=== PATIENT | female | born 1955 | race Caucasian/White ===

== ENCOUNTER 2017-07-23 13:31 | Observation (INO) | payer MEDICAID ==
[~2017-07-23] VITALS: Ht 157.5 cm; Wt 69.9 kg
[~2017-07-23 13:31] MED LIST: AMLODIPINE BES10 MG PO; ASPIRIN 81MG TA81 MG PO; ATORVASTATIN CA40 MG PO; CIPRO 500MG TA500 MG PO; FLAGYL500 M1 PO; LISINOPRIL 20MG20 MG PO; PLAVIX75 M1 PO
[2017-07-23 13:32] VITALS: BP 167/94
[2017-07-23 13:53] LABS: HEMOGLOBIN 14.7 g/dL (12.2-16.2); LYMPH # 2.3 K/mm3 (0.7-4.5); LYMPH % 31.5 % (10-50.0)
[2017-07-23 14:22] LABS: BUN 14 mg/dL (7-18)
[2017-07-23 14:25] LABS: GFR (ESTIMATED) 85 ML/MIN (59-)
--- NOTE | 2017-07-23 14:26 | Emergency Room Report ---
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 N Clinical Suspician of Infection? N Mental Status: 1 - Regular (Normal Baseline) Sepsis Risk:Low Sepsis Risk Have you (or family members/close friends) recently traveled outside the [place]? N If Yes, where/when: Have you had exposure to infectious disease within the past month? N TB? Other? Specify: Patient was walking in her house one hour TECHNICAL SUPPORT CONSULTANT today (around 12:45 PM) when she experienced acute SSCP radiating to her back with nausea and a "hot feeling", no vomiting, no syncope, no diaphoresis, no calf pain. Pain occurs at rest now, and is unremitting. She remotes having had a stress test one year ago, but I do not see documentation in our records. She has a hx of hypertension, hyperlipidemia, FH dad CABG; she does not smoke, is not diabetic. She took low dose aspirin TECHNICAL SUPPORT CONSULTANT and was given supplemental ASA on arrival to ED. ALLERGIES Coded Allergies: enoxaparin (Severe, MOUTH SWELLING 09/11/16) Penicillins (Mild, "FEELS FUNNY" 08/07/16) ciprofloxacin (From CIPRO) (LIPS AWELL, HEART RATE RAPID 09/11/16) latex (I-RASH 09/11/16) lisinopril (RAPID HEART RATE 09/11/16) metronidazole (From FLAGYL) (LIPS SWELLING, HEART RAID RAPID 09/11/16) Home Medications Reported Medications ASPIRIN (Aspirin) 81 MG PO DAILY Amlodipine Besylate (Amlodipine Besylate) 10 MG PO DAILY #30 History Medical History General CAD? No Angina: No WV: No Hypertension? Yes Hyperlipidemia? No CHF? No DVT? No PE? No COPD? No Asthma? No Anemia? No GERD? No Gastric ulcers? No GI Bleed? No Hernia? No Thyroid Problems? No Hypothyroidism? No CVA? No Seizures? No Diabetes? No Renal Insuffiency? No End Stage Renal Disease? No UTI? No Stones? No BPH? No GB Disease: No Nephritic Syndrome? No Asplenia? No Hepatitis? No Sickle Cell Disease? No Arthritis? No Migraines? No Cataracts? No Glaucoma? No MRSA? No HIV? No TB? No Anxiety? No Depression? No Cancer? No More? Yes Additional hx: TIA Immunization Hx DT/Tetanus > 10 Years Ago Flu Refused Pneumonia Refuses Surgical Hx Previous Surgery?Y Tonsils And/Or Adenoids TUBAL LIGATION GALL BLADDER Family History Family Hx Diabetes No CAD Yes Hypertension Yes Hyperlipidemia Yes Cancer Yes TB No Social History Smoking Hx Smoker: Never Smoker Tobacco: No Alcohol Alcohol: No Review of Systems All Other Systems Reviewed and Negative Cardiovascular see HPI Physical Exam Vital Signs Vital Signs Date Time Temp Pulse Resp B/P Pulse O2 O2 Flow FiO2 Ox Delivery Rate 07/23 1502 81 14 160/70 98 07/23 1431 14 07/23 1424 85 14 130/90 98 07/23 1407 14 07/23 1332 98.1 103 16 167/94 98 General Appearance normal appearance, WD/WN, mild distress Eye Exam - bilateral eye normal exam, bilateral eye PERRL, bilateral eye EOMI Neck normal inspection, non-tender, supple, full range of motion Respiratory Status Yes: trachea midline, chest symmetrical, non tender chest. No: respiratory distress, tender on palpation, use of accessory muscles, pain on inspiration, pain on expiration, productive cough, non productive cough. Lung Sounds bilateral: normal breath sounds, lungs clear. Cardiovascular normal exam, regular rate/rhythm, no peripheral edema, no gallop, no JVD, no murmur, no rub, normal peripheral pulses Gastrointestinal normal bowel sounds, normal exam, non tender, soft, no organomegaly, no pulsatile mass, no guarding, no rebound Extremities non-tender, normal range of motion, normal inspection, normal capillary refill, no calf tenderness, no pedal edema (neg Margaret's B) Strength 5 Upper Ext (L), 5 Upper Ext (R), 5 Lower Ext (L), 5 Lower Ext (R) Neurologic alert, normal exam, no motor/sensory deficits, oriented x 3 Glascow Coma Scale Glascow Coma Scale Response Value EYE response: 4 Spontaneously 4 MOTOR response: 6 OBEYS 6 VERBAL response: 5 Oriented & Converses 5 Total 15 Skin intact, normal color, warm/dry Medical Decision Making LABS/Meds/Orders Pt receiving controlled substance in ED? No Results/Orders Laboratory Tests 07/23/17 1345: Sodium 138, Potassium 3.3 L, Chloride 102, Carbon Dioxide 28, BUN 14, Creatinine 0.7, Estimated Creat Clear 91, Estimated GFR (MDRD) 85, Glucose 168 H, Calcium 9.0, Total Bilirubin 0.8, AST 18, ALT 22, Alkaline Phosphatase 134 H , Creatine Kinase 58, CK-MB (CK-2) Rel Index 0.9, CK and CKMB Interp < 0.5, Troponin I < 0.02, Total Protein 7.8, Albumin 4.2, Globulin 3.6 H, Albumin/ Globulin Ratio 1.2, WBC 7.5, RBC 4.58, Hgb 14.7, Hct 42.4, MCV 92.6, RDW 11.8, Plt Count 166, MPV 10.9 H, Gran % 61.7, Gran # 4.6, Lymphocytes % 31.5, Monocytes % 4.8, Eosinophils % 1.0, Basophils % 1.1, Lymphocytes # 2.3, Monocytes # 0.4, Eosinophils # 0.1, Basophils # 0.1, PUBS MCHC 34.7, MCH 32.1 H Current Medication Orders Sig/Vangie Start time Last Medication Dose Route Stop Time Status Admin Ondansetron HCl 0 .STK-MED ONE 07/23 1431 DC .ROUTE Morphine Sulfate 4 MG ONCE ONE 07/23 1430 DC 07/23 IV 07/23 1431 1431 Morphine Sulfate 0 .STK-MED ONE 07/23 1430 DC .ROUTE Ondansetron HCl 4 MG ONCE ONE 07/23 1430 DC 07/23 IV 07/23 1431 1431 Nitroglycerin 0.4 MG ONCE ONE 07/23 1415 DC 07/23 SL 07/23 1416 1407 Sodium Chloride 1,000 ML .Q1H1M 07/23 1415 DC 07/23 IV 07/23 1515 1407 Sodium Chloride 10 ML PRN PRN 07/23 1415 AC IV 07/24 1406 Nitroglycerin 0 .STK-MED ONE 07/23 1351 DC SL Sodium Chloride 1,000 ML .STK-MED ONE 07/23 1351 DC IV Sodium Chloride 10 ML PRN PRN 07/23 1345 AC IV 07/24 1339 Orders Procedure Date/time Status Decision to admit 07/23 1502 Active ELECTROCARDIOGRAM REQUEST 07/23 1339 Active CHEST-AP VIEW ONLY 07/23 1339 Active IV SALINE LOCK 07/23 1339 Active CBC WITH AUTO DIFF 07/23 1339 Complete CARDIAC ENZYMES 07/23 1339 Complete CHEM 12 PROFILE 07/23 1339 Complete 12 LEAD EKG-OLENA (INITIAL) 07/23 UNK Active CM/EKG CM/EKG EKG rate, NSR, rhythm, no ectopy, normal QRS, normal CO, normal EKG (Stach w ST depression V4-V6), compared w/(date of old) (04/21: these are NEW) XRAY/CT/US XRAY/CT/US XRAY chest XR interpretation by reviewed by me Xray Results normal/NAD, no infiltrates, normal heart size Consult MD Physician Consult 1 Time Called 1426 Reason Pt. Condition, Cardiology eval/care Physician Consult 2 Time Called [address] Mccloud admitting. Progress ED Progress Notes Date 07/23/17 Time 1502 Comment stress test 02/25/16 good exercise tolerance Departure Departure Time of Disposition 1443 Disposition Still a Patient Clinical Impression Primary Impression: Chest pain Qualifiers: Chest pain type: precordial pain Qualified Code: R07.2 - Precordial pain Condition STABLE Referrals Ame DAVIS,Ba Bonilla (Family) ED Critical Care Critical Care Yes Time spent < 30 min Vital system(s) involved: Circulatory Failure (unstable angina) I was present at bedside for Coordinating pt's care, Interpreting EKGs/Strips , During my initial exam, Reviewing lab results, Reviewing old records, Discussing pt condition, For re-examinations, Examining radiographs (consult; d/ w pt) at 4498
--- NOTE | 2017-07-23 15:23 | CONSULT NOTE ---
Standard Demographics Patient Demo Date of Consultation: 07/23/17 Referring Provider: Rebecca Mccloud MD Reason for Consultation: Unstable angina PRIMARY DIAGNOSIS: chest pain Problem list Problem list: 1. HTN 2. Hyperlipidemia 3. History of TIA, 2016, workup at without etiology 4. GXT only, 02/2016, 8 min, 10.1 METS, no chest pain or SOA. Mild ST segment changes. 5. FH of ASHD in father with CABG in his 60's History of present illness: History of present illness: 62 yo WF with history of HTN, Hyperlipidemia and TIA in 2016 came to ER today for evaluation of sudden onset of right sided and SS chest pain that included chest pressure, mild SOA and diaphoresis sensation for about one hour prior to arrival. Pt was given 1 SL NTG in ER with improvement in symptoms but not resolved. EKG is sinus tach at 100 bpm with NSSTTW abnormalities laterally when compared to previous EKG's. Initial troponin is normal. Cardiology consulted for evaluation. Pt denies diabetes or tobacco use. Past Medical History: General: Hypertension Yes CVA No Seizures No TB No COPD No Asthma No Diabetes No Angina No NC No Hyperlipidemia No Cancer No MRSA No GB Disease No Additional hx TIA Past Surgical HX: Previous Surgery?Y Tonsils And/Or Adenoids TUBAL LIGATION GALL BLADDER Allergies Coded Allergies: enoxaparin (Severe, MOUTH SWELLING 09/11/16) Penicillins (Mild, "FEELS FUNNY" 08/07/16) ciprofloxacin (From CIPRO) (LIPS AWELL, HEART RATE RAPID 09/11/16) latex (I-RASH 09/11/16) lisinopril (RAPID HEART RATE 09/11/16) metronidazole (From FLAGYL) (LIPS SWELLING, HEART RAID RAPID 09/11/16) Home medications: Reported Medications ASPIRIN (Aspirin) 81 MG PO DAILY Amlodipine Besylate (Amlodipine Besylate) 10 MG PO DAILY #30 Current Medications: Current Medications Ondansetron HCl 0 .STK-MED ONE .ROUTE (DC) Morphine Sulfate 4 MG ONCE ONE IV (DC) Morphine Sulfate 0 .STK-MED ONE .ROUTE (DC) Ondansetron HCl 4 MG ONCE ONE IV (DC) Nitroglycerin 0.4 MG ONCE ONE SL (DC) Sodium Chloride 1,000 ML .Q1H1M IV Sodium Chloride 10 ML PRN PRN IV Nitroglycerin 0 .STK-MED ONE SL (DC) Sodium Chloride 1,000 ML .STK-MED ONE IV (DC) Sodium Chloride 10 ML PRN PRN IV Immunization HX DT/Tetanus > 10 Years Flu Refused Pneumonia Refuses Family history Family HX Family Hx Insignificant No Diabetes No CAD Yes Hypertension Yes Hyperlipidemia Yes Cancer Yes TB No Social Hx: Smoking HX Tobacco No Alcohol Alcohol: No Hx of Drug Use Drug Use? No Review of systems: Constitutional No: no symptoms reported. Respiratory No: no symptoms reported. Cardiovascular see HPI, chest pain Gastrointestinal/Abdominal No no symptoms reported Genitourinary No: no symptoms reported. Musculoskeletal No: no symptoms reported. Neurological No: no symptoms reported. Exam: Admission Vital Signs: 1ST Vital Signs Result Date Time Pulse Ox 98 07/23 1332 B/P 167/94 07/23 1332 Temp 98.1 07/23 1332 Pulse 103 07/23 1332 Resp 16 07/23 1332 Last Vital Signs: Vital Signs Result Date Time Pulse Ox 98 07/23 1502 B/P 160/70 07/23 1502 Pulse 81 07/23 1502 Resp 14 07/23 1502 Temp 98.1 07/23 1332 Exam General appearance: alert, awake, no acute distress Neck: no carotid bruit, no JVD Cardiovascular: regular rate & rhythm, no murmur Respiratory: clear to auscultation, good air movement ABD: soft, no tenderness Extremities: moves all, no peripheral edema Neuro: alert, intact, oriented Laboratory data: Laboratory Tests 07/23/17 1345: Sodium 138, Potassium 3.3 L, Chloride 102, Carbon Dioxide 28, BUN 14, Creatinine 0.7, Estimated Creat Clear 91, Estimated GFR (MDRD) 85, Glucose 168 H, Calcium 9.0, Total Bilirubin 0.8, AST 18, ALT 22, Alkaline Phosphatase 134 H , Creatine Kinase 58, CK-MB (CK-2) Rel Index 0.9, CK and CKMB Interp < 0.5, Troponin I < 0.02, Total Protein 7.8, Albumin 4.2, Globulin 3.6 H, Albumin/ Globulin Ratio 1.2, WBC 7.5, RBC 4.58, Hgb 14.7, Hct 42.4, MCV 92.6, RDW 11.8, Plt Count 166, MPV 10.9 H, Gran % 61.7, Gran # 4.6, Lymphocytes % 31.5, Monocytes % 4.8, Eosinophils % 1.0, Basophils % 1.1, Lymphocytes # 2.3, Monocytes # 0.4, Eosinophils # 0.1, Basophils # 0.1, PUBS MCHC 34.7, MCH 32.1 H Plan: Assessment: 1. Chest pain with concern for UAP with questionable inferolateral EKG changes. ANA MARIA score of 3-4 (risk factors, recurrent chest pain, daily ASA use and questionable EKG changes). Add metoprolol, NTG paste and Brilinta 2. HTN, elevated 3. Hyperlipidemia, previously on statin but stopped earlier this year. Will restart. 4. History of TIA, now on ASA therapy 5. Hypokalemia, will replace Recommendations: 1. Admit to observation and rule out NC with serial troponins. 2. Check echo today 3. Will plan cardiac cath in AM unless pain persists or clinically worsens then would perform sooner. 4. Discussed with Dr. Woodson. at 2224
--- NOTE | 2017-07-23 15:49 | RADIOLOGY REPORT PS360 ---
CHEST-AP VIEW ONLY HISTORY: CHEST TIGHTNESS ORDERING PHYSICIAN: Kacy Lawrence MD PATIENT AGE: 62 years COMPARISON: 04/26/2017 FINDINGS: The cardiomediastinal silhouette and pulmonary vascularity are within normal limits. The lungs are clear without infiltrates, suspicious nodules, or pleural effusions. No acute bony abnormalities. IMPRESSION: Negative chest, no acute finding
--- NOTE | 2017-07-23 16:17 | PHARMACY CLINIC NOTE ---
Patient Demographics Patient Demographics Admission date: 07/23/17 Date: 07/23/17 Time: 1616 Allergies Coded Allergies: enoxaparin (Severe, MOUTH SWELLING 09/11/16) Penicillins (Mild, "FEELS FUNNY" 08/07/16) ciprofloxacin (From CIPRO) (LIPS AWELL, HEART RATE RAPID 09/11/16) latex (I-RASH 09/11/16) lisinopril (RAPID HEART RATE 09/11/16) metronidazole (From FLAGYL) (LIPS SWELLING, HEART RAID RAPID 09/11/16) HEIGHT- FT: 5 IN: 2.00 K.040 VTE General Information Labs: Laboratory Tests 07/23 1345 Hematology Hgb (12.2 - 16.2 g/dL) 14.7 Hct (37.0 - 47.0 %) 42.4 Plt Count (142 - 424 K/mm3) 166 Disclaimer The following section includes nursing documentation that has been pulled in for pharmacy review. VTE prophylaxis [id number] VTE prophylaxis ordered? Yes Type of prophylaxis/treatment: KATE at 1612
[2017-07-23 16:26] VITALS: BP 156/91
[2017-07-23 17:15] VITALS: BP 156/91
[2017-07-23 19:44] VITALS: BP 119/71
--- NOTE | 2017-07-23 21:56 | HISTORY AND PHYSICAL REPORT ---
Demographics: Admit date: 07/23/17 Chief complaint: chest pain PRIMARY DIAGNOSIS: chest pain Allergies: Coded Allergies: enoxaparin (Severe, MOUTH SWELLING 09/11/16) Penicillins (Mild, "FEELS FUNNY" 08/07/16) ciprofloxacin (From CIPRO) (LIPS AWELL, HEART RATE RAPID 09/11/16) latex (I-RASH 09/11/16) lisinopril (RAPID HEART RATE 09/11/16) metronidazole (From FLAGYL) (LIPS SWELLING, HEART RAID RAPID 09/11/16) History of present illness: History of present illness: 62 yo WF with history of HTN, Hyperlipidemia and TIA in 2016 came to ER today for evaluation of sudden onset of right sided and SS chest pain that included chest pressure, mild SOA and diaphoresis sensation for about one hour prior to arrival. Pt was given 1 SL NTG in ER with improvement in symptoms but not resolved. EKG is sinus tach at 100 bpm with NSSTTW abnormalities laterally when compared to previous EKG's. Initial troponin is normal. Cardiology consulted for evaluation. Pt denies diabetes or tobacco use. Past medical history: Family HX Diabetes No CAD Yes Hypertension Yes Hyperlipidemia No Cancer Yes TB No Immunization HX DT/Tetanus Unknown Flu Refused Pneumonia Never Had TB Test in last year No General CAD? No Angina: No ID: No Hypertension? Yes Hyperlipidemia? No CHF? No DVT? No PE? No COPD? No Asthma? No Anemia? No GERD? No Gastric ulcers? No GI Bleed? No Hernia? No Thyroid Problems? No Hypothyroidism? No CVA? No Seizures? No Diabetes? No Renal Insuffiency? No UTI? No Stones? No BPH? No GB Disease: No Nephritic Syndrome? No Asplenia? No Hepatitis? No Sickle Cell Disease? No Arthritis? No Migraines? No Cataracts? No Glaucoma? No MRSA? No HIV? No TB? No Anxiety? No Depression? No Cancer? No More? Yes Additional hx: TIA Past Surgical HX Previous Surgery?Y Tonsils And/Or Adenoids TUBAL LIGATION GALL BLADDER Current home meds: Reported Medications ASPIRIN (Aspirin) 81 MG PO DAILY Amlodipine Besylate (Amlodipine Besylate) 10 MG PO DAILY #30 Social Hx: Smoking HX Tobacco No Are you/the child exposed to second-hand smoke: Yes Alcohol Alcohol: No Hx of Drug Use Drug Use? No Patien't marital status is Patient's support system is good Review of systems: Constitutional No: fever. Eyes No: drainage. Ears, Nose, Mouth, Throat No ear pain, No epistaxis, No throat pain Respiratory No: cough, shortness of breath, wheezing. Cardiovascular chest pain, No palpitations, No syncope Gastrointestinal/Abdominal No abdominal pain, No poor appetite, No vomiting Genitourinary No: dysuria, frequency, hesitancy. Musculoskeletal No: back pain, joint pain, joint swelling, neck pain. Skin No: rash. Neurological No: headache, seizure disorder. Psychiatric No: depressed. Exam: Lab data for last 24 hours: Laboratory Tests 07/23/17 2205: Troponin I < 0.02 07/23/17 1902: Troponin I < 0.02 07/23/17 1709: POC Glucose 92 07/23/17 1345: Sodium 138, Potassium 3.3 L, Chloride 102, Carbon Dioxide 28, BUN 14, Creatinine 0.7, Estimated Creat Clear 91, Estimated GFR (MDRD) 85, Glucose 168 H, Calcium 9.0, Total Bilirubin 0.8, AST 18, ALT 22, Alkaline Phosphatase 134 H , Creatine Kinase 58, CK-MB (CK-2) Rel Index 0.9, CK and CKMB Interp < 0.5, Troponin I < 0.02, Total Protein 7.8, Albumin 4.2, Globulin 3.6 H, Albumin/ Globulin Ratio 1.2, WBC 7.5, RBC 4.58, Hgb 14.7, Hct 42.4, MCV 92.6, RDW 11.8, Plt Count 166, MPV 10.9 H, Gran % 61.7, Gran # 4.6, Lymphocytes % 31.5, Monocytes % 4.8, Eosinophils % 1.0, Basophils % 1.1, Lymphocytes # 2.3, Monocytes # 0.4, Eosinophils # 0.1, Basophils # 0.1, PUBS MCHC 34.7, MCH 32.1 H Admission vital signs: 1ST Vital Signs Result Date Time Pulse Ox 98 07/23 1332 B/P 167/94 07/23 1332 Temp 98.1 07/23 1332 Pulse 103 07/23 1332 Resp 16 07/23 1332 O2 Delivery ROOM AIR 07/23 1626 Exam General appearance: alert Eyes: PERRLA ENT: dry mucous membranes Neck: no JVD Cardiovascular: regular rate & rhythm Respiratory: no respiratory distress ABD: soft Genitourinary: no hematuria Extremities: moves all Musculoskeletal: equal muscle strength Skin: dry 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 Chest pain Plan: will have card see pt at 0132
[2017-07-24] VITALS (12 sets, daily range): BP systolic 90–153; BP diastolic 57–97
--- NOTE | 2017-07-24 05:25 | RADIOLOGY REPORT PS360 ---
PROCEDURE: 2-D M-mode and color Doppler study INDICATIONS FOR THE TEST: Chest pain X COPD Heart Murmur Tobacco Smoking Palpitations Fatigue Syncope Edema HypertensionXDiabetes Mellitus Rheumatic Fever SOB HUGHES Obesity HyperlipidemiaX Family History HD Additional History H/O TIA PATIENT INFORMATION HEIGHT: 63 WEIGHT:150 GENDER: Female B/P:130/90 2-D/M-MODE INTERPRETATION: 2-D MEASUREMENTS OBSERVED VALUES IN CMS Right Ventricular Dimension (RVDd) 2.3 Interventricular Septum (Thickness)(IVsd) .7 Left Ventricular Internal Dimensions(LVIDd) 4.9 Left Ventricular Posterior Wall (Thickness)(LVPWd) .6 Aortic Root 2.3 Aortic Cusp Separation 1.5 Left Atrial Dimensions (LAD) 2.9 2D 1. Left atrium is qualitatively mildly enlarged, left ventricle is normal size, there is no concentric left ventricular hypertrophy, visually estimated ejection fraction of 55% with no obvious regional wall motion abnormality. 2. The right atrium is mildly enlarged, right ventricle is moderately dilated with normal contractility. 3. The aortic valve is minimally thickened and fibrosed. 4. The mitral and tricuspid valve leaflets are minimally thickened. 5. The pulmonic valve is poorly visualized. 6. No significant pericardial effusion noted. DOPPLER INTERROGATION: Doppler interrogation of the aortic, mitral and tricuspid valvular presence of mild mitral and tricuspid regurgitation, tricuspid regurgitant jet velocity is insufficient for calculation of the right ventricular systolic pressure, grade 1 diastolic dysfunction seen without tissue Doppler evidence of raised left atrial pressure. CONCLUSION: 1. Biatrial enlargement, normal left ventricular size, preserved left ventricular systolic function, visually estimated ejection fraction of 55% with no obvious regional wall motion abnormality, grade 1 diastolic dysfunction seen without tissue Doppler evidence of raised left atrial pressure. 2. Moderately enlarged right ventricle with normal contractility. 3. Mild mitral and tricuspid regurgitation. 4. No significant pericardial effusion noted.
[2017-07-24 06:43] LABS: HEMOGLOBIN 13.5 g/dL (12.2-16.2); LYMPH # 1.9 K/mm3 (0.7-4.5); LYMPH % 24.7 % (10-50.0)
--- NOTE | 2017-07-24 07:23 | ACUTE CARE PROGRESS NOTE (QUA) ---
Progress Notes Subjective Date 07/24/17 Time 0715 Note 62 yo WF in bed in NAD. Episode of chest pain that woke her from sleep during the night. Resolved slowly after NTG paste applied and metoprolol taken. No nausea or vomiting. Objective Findings Last VS-Temp:98.1 B/P:153/97 Pulse:63 Resp:16 SaO2:96 ROOM AIR Last weight lbs:154 oz:0 K.854 Method:Bed Scales Exam General appearance: alert, awake Cardiovascular: regular rate & rhythm Respiratory: clear to auscultation Reviewed: medications, vital signs, lab results Assessment/Plan Problem List 1. Chest pain Assessment/Plan: Troponins normal X 3 but with recurrent chest pain and elevated ANA MARIA score, recommend cardiac cath. Qualifiers: Chest pain type: precordial pain Qualified Code: R07.2 - Precordial pain 2. Hypertension Status: Acute 3. Hyperlipidemia Patient condition Stable Plan: Proceed with cardiac cath today. This inpt stay is expected to cross 2 MNs from start of care Yes at 0793
--- NOTE | 2017-07-24 07:44 | ACUTE CARE PROGRESS NOTE (QUA) ---
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 Chest pain 2. Hypertension Status: Acute 3. Hyperlipidemia Patient condition Stable Plan: continue current care This inpt stay is expected to cross 2 MNs from start of care Yes Comments: 1 episode of chest pain this am about 4 - resolved at 0744
--- NOTE | 2017-07-24 07:44 | ACUTE CARE PROGRESS NOTE (QUA) ---
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 Chest pain 2. Hypertension Status: Acute 3. Hyperlipidemia Patient condition Stable Plan: continue current care This inpt stay is expected to cross 2 MNs from start of care Yes Comments: 1 episode of chest pain this am about 4 - resolved at 0744
--- NOTE | 2017-07-24 09:09 | RADIOLOGY REPORT PS360 ---
CARDIAC CATHETERIZATION DATE OF CATHETERIZATION:07/24/2017 8:25 AM PROCEDURES: 1. Left heart catheterization 2. Left ventriculogram 3. Selective coronary angiogram INDICATION FOR TEST: 1. Unstable angina 2. ANA MARIA score 3-4 Informed consent was obtained prior to the procedure. COMPLICATIONS: None ESTIMATED BLOOD LOSS: Less than 10 ml. TECHNIQUE: One percent lidocaine was used to anesthetize the right groin. The right femoral artery was accessed via the Seldinger technique. A 4-Italian sheath was placed in the right femoral artery. The JL-4 and JR-4 catheter was also used to perform left heart catheterization and left ventriculography. At the end of the procedure the patient was transferred to the post-op holding area in stable condition for arterial sheath removal. ANGIOGRAPHIC RESULTS: 1. The left main artery normal 2. The left anterior descending artery normal 3. The circumflex artery normal 4. The right coronary artery dominant normal 5. The PINA ventriculogram reveals normal 65% 6. The left ventricular end-diastolic pressure 10 mmHg IMPRESSION: 1. Normal coronary arteries. 2. Normal ejection fraction 3. Normal left ventricular end-diastolic pressure PLAN: 1. Evaluation of noncardiac chest pain 2. The possibility of endothelial dysfunction does exist given patient's tobacco usage. Would recommend avoidance of tobacco products 3. Risk factor modification
--- NOTE | 2017-07-24 12:26 | DISCHARGE SUMMARY STANDARD ---
Demographics Admit date: 07/23/17 Discharge date: 07/24/17 History of present illness History of present illness 62 yo WF with history of HTN, Hyperlipidemia and TIA in 2016 came to ER today for evaluation of sudden onset of right sided and SS chest pain that included chest pressure, mild SOA and diaphoresis sensation for about one hour prior to arrival. Pt was given 1 SL NTG in ER with improvement in symptoms but not resolved. EKG is sinus tach at 100 bpm with NSSTTW abnormalities laterally when compared to previous EKG's. Initial troponin is normal. Cardiology consulted for evaluation. Pt denies diabetes or tobacco use. Hospital Course Hospital Course: pt with chest pain at 400 am but enz stable and had card cathNGIOGRAPHIC RESULTS : 1. The left main artery normal 2. The left anterior descending artery normal 3. The circumflex artery normal 4. The right coronary artery dominant normal 5. The PINA ventriculogram reveals normal 65% 6. The left ventricular end-diastolic pressure 10 mmHg IMPRESSION: 1. Normal coronary arteries. 2. Normal ejection fraction 3. Normal left ventricular end-diastolic pressure PLAN: 1. Evaluation of noncardiac chest pain 2. The possibility of endothelial dysfunction does exist given patient's tobacco usage. Would recommend avoidance of tobacco products 3. Risk factor modification Discharge diagnoses Problem List 1. Chest pain 2. Hypertension Status Acute 3. Hyperlipidemia Medications Medications: Discharge meds are as noted. Follow up Follow up in office in: 7 DAYS with: Izabella Stauffer Comment: will see in office for folow up at [phone]
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
--- OUTSIDE RECORDS SUMMARY | 2017-08-15 04:30 | External Medical Summary Rpt ---
Author Author , NAYA Organization NAYA Address Unknown Phone [email or web address] Care Team Providers Care Filter Press Supervisor Name Role Phone ESCALANTE CAMERON, ESCALANTE Unavailable Unavailable CAMERON ALLRAN JR RUDY, ALLRAN Unavailable Unavailable JR RUDY BEINEKE, BEINEKE Unavailable Unavailable BESSON RAMBO, BESSON Unavailable Unavailable RAMBO AWAD, AWAD Unavailable Unavailable AWAD ALL, AWAD ALL Unavailable Unavailable [facility] Unavailable Unavailable SERVICE, [facility] GAN VAZQUEZ, GAN Unavailable Unavailable [facility] Unavailable Unavailable [facility] DANIEL, DANIEL Unavailable Unavailable DANIEL JAMIN, Unavailable Unavailable DANIEL JAMIN JACKSON MAT, JACKSON Unavailable Unavailable MAT FRYMAN, FRYMAN Unavailable Unavailable FRYMAN EUG, FRYMAN Unavailable Unavailable EUG AIDE, IADE Unavailable Unavailable AIDE SHORTY, AIDE Unavailable Unavailable SHORTY [facility] Un[facility] Un[facility], [facility] Unavailable Unavailable HOSPITAL P, [facility], Unavailable Unavailable [facility] MCKEON MCKEON Unavailable Unavailable EMERSON LEXII, Unavailable Unavailable EMERSON LEXII [facility] Unavailable Unavailable IM[facility], [facility] Unavailable [...] LETI, Unavailable Unavailable SOTINGEANU LETI VASILE RIZWANA, VASILE Unavailable Unavailable RIZWANA [facility] Unavailable Unavailable [facility]OSPITALS, [facility] CHAR RUDY, CHAR Unavailable Unavailable RUDY WALKER FOR, WALKER Unavailable Unavailable FOR Purpose Continuity of Care Document - 01-28-2016 through 2016 Problems Code Diagnosis DOS Provider Status R928 OTH ABNORM 06-14-2017 [facility] INCONCLUSIV INC E FIND ON DX IMAG BREAST Z1231 ENCOUNTER 06-14-2017 [facility] MEDICAL MAMMO MALIG IMAGING ASS NEOPLASM BREAST I10 ESSENTIAL 06-06-2017 [facility] PRIMARY PHYSICIANS HYPERTENSIO GROUP N G459 TRANSIENT 04-26-2017 [facility]ERE[facility]AL [facility]ANS, ISCHEMIC PLLC ATTACK UNSPECIFIED R062 WHEEZING 04-26-2017 [facility] R200 ANESTHESIA 04-26-2017 [facility] SKIN MEDICAL IMAGING ASS R202 PARESTHESIA 04-26-2017 [facility] SKIN MEDICAL IMAGING ASS E785 HYPERLIPIDE 12-06-2016 [facility] JOAQUIN PHYSICIANS UNSPECIFIED GROUP 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 UNSPECIFIED K5731 DIVERTICULO 10-02-2016 [facility] SIS LG PHYSICIANS INTEST W/O GROUP PERF/ABSC W/BLEED 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 K5730 DIVERTICULO 09-12-2016 [facility] SIS LG PHYSICIANS INTEST W/O GROUP PERF/ABSC W/O BLEED R1030 LOWER 09-12-2016 [facility] ABDOMINAL PHYSICIANS PAIN GROUP UNSPECIFIED Z1211 ENCOUNTER 09-12-2016 [facility] ANEST[facility] MALIGNANT THE BLUE NEOPLASM OF COLON U33887 ENCOUNTER 08-29-2016 [facility] MONOR[facility] GENERAL RTN W/O ABNORMAL FIND R748 ABNORMAL 08-28-2016 [facility] LEVELS OF PHYSICIANS OTHER SERUM GROUP ENZYMES [...] SITE NOT SPECIFIED R1031 RIGHT LOWER 08-07-2016 [facility] MEDICAL PAIN IMAGING ASS Z8673 PERSONAL HX 03-13-2016 [place] [facility] T[facility] SERV CEREB [facility]OUNDATION INFARCT NO RESID DEFICIT R079 CHEST PAIN 02-25-2016 [facility] P R209 UNSPECIFIED 2016 [facility] S OF SKIN SENSATION I378 OTHER 02-03-2016 [place] [facility] 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 G8191 HEMIPLEGIA 02-02-2016 [place] [facility] UNS SERV AFFECTING FOUNDATION RIGHT DOMINANT SIDE 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, UNS [facility]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/STEN UNS CEREB ART R18574 CEREBRAL 02-02-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 UNS SERV OCCL/STEN FOUNDATION LT CEREBELLAR ART R0789 OTHER CHEST 02-02-2016 [place] [facility] PAIN SERV [facility]OUNDATION R0989 OT SPEC SX 02-01-2016 [facility] & SIGNS PHYSICIANS INVLV THE GROUP CIRC & RESP SYS 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 I2699 OTH 01-31-2016 [facility] PULMONARY PHYSICIANS EMBOLISM GROUP W/O ACUTE COR PULMONALE I361 NONRHEUMATI 01-31-2016 [place] [facility] C TRICUSPID SERV VALVE FOUNDATION INSUFFICIEN CY I371 NONRHEUMATI 01-31-2016 [place] [facility] C PULMONARY SERV VALVE FOUNDATION INSUFFICIEN CY R0600 DYSPNEA 01-31-2016 [place] UNSPECIFIED [facility]ICAL IM[facility]ING ASS D03910 PERSONAL 01-31-2016 [place] HISTORY OF MEDICAL PULMONARY IMAGING ASS EMBOLISM X81758 PAIN IN 01-28-2016 [place] RIGHT MEDICAL SHOULDER IMAGING ASS M58428 PAIN IN 01-28-2016 [facility] RIGHT ARM PHYSICIANS, [facility] [id number] ADVERSE 01-28-2016 [facility] P NTS INITIAL ENCOUNTER Medications Na [...] Procedure DOS Code Location Performer Comment SCREENING 07762 [facility] MAMMOGRAP INC INC HY BI 2-VIEW BREAST INC CAD SCREENING G0202 [facility] 7 MEDICAL MAMMOGRAP IMAGING HY MARINA ASS INCL CAD WHEN PERFORMD DUPLEX 24236 [facility] SANCHEZ SCAN 7 MEDICAL EXTRACRAN IMAGING IAL ART ASS COMPL BI STUDY COMPREHEN 47503 [facility] JEAN SIVE 7 [facility] [place] [address] [facility] REAGAN CERVICAL 7 MEDICAL MEDICAL SPINE W/O IMAGING IMAGING CONTRAST ASS ASS MATERIAL CREATINE 60155 M[facility]DA JEAN KINASE MB 7 [facility] [place] [address] [facility] SANCHEZ HEAD/BRAI 7 MEDICAL N W/O IMAGING CONTRAST ASS MATERIAL RADIOLOGI 06859 [facility] GI[facility]ON C EXAM 7 MEDICAL CHEST 2 IMAGING VIEWS ASS FRONTAL&[place] [address] M[facility] JEAN TROPONIN 7 [facility] QUANTITAT INC INC ANNA BLOOD 92629 [facility] JEAN COUNT 7 [facility] COMPLETE INC INC AUTO&AUTO DIFRNTL WBC ECG 42114 [facility] NOBLE ROUTINE 7 PHYSICIAN ECG S, PLLC W/LEAST 12 LDS I&R ONLY CREATINE 70728 M[facility] JEAN KINASE 7 [facility] TOTAL INC INC ECG 58177 [facility] JEAN ROUTINE 7 [facility] ECG INC INC W/LEAST 12 LDS TRCG ONLY W/O I&R URNLS DIP 23778 [facility] JEAN 7 [facility] STICK/TAB INC INC LET REAGENT AUTO MICROSCOP Y LIPID 00399 [facility] JEAN PANEL 7 [place] [address] MIRANDA JEAN FREE 7 [facility] THYROXINE INC INC GENERAL 94940 [facility] JEAN HEALTH 7 [facility] PANEL INC INC DIAGNOSTI G0206 [facility] Ocampo 7 [facility] MAMMOGRAP INC INC HY INCL CAD WHEN PERF; UNI DIAGNOSTI 52102 [facility] RITESH Damaris 7 MEDICAL MAMMOGRAP IMAGING HY ASS COMPUTER- AIDED DETCJ UNI US BREAST 99952 [facility] JEAN UNI REAL 7 [facility] TIME INC INC WITH IMAGE COMPLETE US BREAST 22030 MERARY AWAD UNI REAL 7 MEDICAL TIME IMAGING WITH ASS IMAGE LIMITED COLONOSCO 34343 [facility] JOSS GARCIA PY 6 PHYSICIAN RUDY W/BIOPSY S GROUP SINGLE/MU LTIPLE COLSC FLX 48759 [facility] JOSS GARCIA W/RMVL 6 PHYSICIAN RUDY OF T[place] [address] [facility] JEAN INFUSION 6 [facility] THERAPY/P INC INC ROPHYLAXI S /DX 1ST TO 1 [place] [address] [facility], GILLIS SURG 6 [facility] PATHOLOGY GROSS&[place] [address] M[facility] JEAN INFUSION 6 [facility] THERAPY INC INC PROPHYLAX IS/DX EA HOUR ANES 77752 [facility] 6 ANESTH [place]IZWANA INTESTINE OF THE BLUE ENDOSCOPY DISTAL DUODENUM CYTP C/V 97274 [facility], PICKLESIM AUTO THIN 6 [facility] ER JR PATRICK LYR PREPJ SCR MNL RESCR PHYS LIPID 00486 [facility] JEAN PANEL 6 [facility] INC INC HEPATIC 70620 [facility]DA JEAN FUNCTION 6 [facility] PANEL INC INC HEPATITIS 44391 M[facility] JEAN C 6 [facility] ANTIBODY INC INC HEPATITIS 63299 M[facility]DA JEAN B CORE 6 [facility] ANTIBODY INC INC HBCAB TOTAL HEPATITIS 44781 [facility] JEAN B SURF 6 [facility] [place] [address] M[facility]DA JEAN HEPATITIS 6 [facility] B INC INC SURFACE ANTIGEN PROTHROMB 99596 [facility] JEAN IN TIME 6 [facility] INC INC COLLECTIO 03232 M[facility]DA JEAN N VENOUS 6 [facility] [place] [address] M[facility] JEAN ABDOMINAL 6 [facility] REAL INC INC TIME W/IMAGE LIMITED HEPATITIS 38874 M[facility] JEAN A 6 [facility] ANTIBODY INC INC HAAB COLLECTIO 38702 [facility] JEAN N VENOUS 6 [facility] BLOOD INC INC VENIPUNCT URE COMPREHEN 24067 M[facility]DA JEAN SIVE 6 [facility] [place] [address] MIRANDA MIRANDA AMYLASE 6 [place] [address] [facility] JARVISDANIEL ABDOMEN & 6 MEDICAL JAMIN PELVIS IMAGING W/[place] [address] MIRANDATERA JEAN LIPASE 6 [facility] INC INC BLOOD 70044 MIRANDATERA JEAN COUNT 6 [facility] COMPLETE INC INC AUTO&AUTO DIFRNTL WBC URNLS DIP 58355 [facility] JEAN 6 [facility] STICK/TAB INC INC LET REAGENT AUTO MICROSCOP Y US BREAST 81688 MERARY AWAD ALL UNI REAL 6 MEDICAL TIME IMAGING WITH ASS IMAGE LIMITED US BREAST 04608 M[facility]DA EJAN UNI REAL 6 [facility] TIME INC INC WITH IMAGE COMPLETE DIAGNOSTI G0206 MERARY AWAD ALL C 6 MEDICAL MAMMOGRAP IMAGING HY INCL ASS CAD WHEN PERF; UNI SCREENING G0202 [facility] JEAN 6 [facility] MAMMOGRAP INC INC HY MARINA INCL CAD WHEN PERFORMD - 71351 M[facility]DA JEAN AIDED 6 [facility] DETECTION INC INC SCREENING MAMMOGRAP HY CV STRS 25102 MIR[facility]DA ZHANG TST 6 [facility] RX CONT P ECG W/O I&R CV STRS 49604 MIR[facility]DA JEAN TST 6 [facility] XERS&/OR INC INC RX CONT ECG TRCG ONLY CV STRS [address]605 [address] ZHANG TST [address] [facility] RX CONT P ECG I&R ONLY CREATINE 61508 MIR[facility]DA JEAN KINASE MB 6 [facility] FRACTION INC INC ONLY THROMBOPL 50365 M[facility]DA JEAN ASTIN 6 [facility] TIME INC INC PARTIAL PLASMA/WH OLE BLOOD ECG 67190 M[facility]DA JEAN ROUTINE 6 [facility] ECG INC INC W/LEAST 12 LDS TRCG ONLY W/O I&[place] [address] MERARY SANCHEZ HEAD/BRAI 6 MEDICAL JAMIN N W/O IMAGING CONTRAST ASS MATERIAL COMPREHEN 95363 MIR[facility]DA JEAN SIVE [address] [facility] METABOLIC INC INC PANEL BLOOD 19123 MIRANDA JEAN COUNT [address] [facility] COMPLETE INC INC AUTO&[place] [address] [address]IRANDA JEAN TROPONIN [address] [facility] QUANTITAT INC INC ANNA ECG 29737 MIRANDA HYATT JR ROUTINE 6 [facility] W/LEAST P 12 LDS I&R ONLY PROTHROMB 70068 MIRANDA JEAN IN TIME 6 [facility] INC INC CREATINE 01177 MIRANDA JEAN KINASE 6 [facility] TOTAL INC INC ECHO 31489 [facility] TTHRC R-T 6 MEDICAL 2D SERV W/WOM-MOD FOUNDATIO E COMPL N SPEC&COLR D SBSQ 58575 [facility] 6 MEDICAL CARE/DAY SERV 25 FOUNDATIO MINUTES N CRITICAL 14639 [facility] 6 PHYSICIAN MAT ILL/INJUR S, PLLC ED PATIENT INIT 30-74 MIN AMB A0427 [facility] SERV[facility] 6 AMBULANCE AMBULANCE ALS SERVICE SERVICE [place] [address] MIRANDA JEAN HEAD/BRAI 6 [facility] N W/O INC INC CONTRAST MATERIAL RADIOLOGI 78122 [place] BERONICA WAGGONER 6 MEDICAL RUDY EXAMINATI SERV ON CHEST FOUNDATIO SINGLE N VIEW FRONTAL INITIAL 66843 [facility] 6 MEDICAL CARE/DAY SERV 30 FOUNDATIO MINUTES N ECG 68343 MIRANDA ZHANG ROUTINE 6 [facility] W/LEAST P 12 LDS I&R ONLY THER 79058 M[facility]DA JEAN PROPH/DX 6 [facility] NJX IV INC INC PUSH SINGLE/1S T SBST/DRUG ECG 67747 [facility]DA JEAN ROUTINE 6 [facility] ECG INC INC W/LEAST 12 LDS TRCG ONLY W/O I&R GROUND A0425 [facility] 6 AMBULANCE AMBULANCE PER SERVICE SERVICE STATUTE MILE RIGHT 51525 [facility] HEART 6 PHYSICIAN MAT CATH O2 S GROUP SATURATIO N & [facility] 05665 [facility] AIDE DISCHARGE 6 PHYSICIAN SHORTY DAY S GROUP MANAGEMEN T 30 MIN/< DUP-SCAN 92834 [facility] SANCHEZ XTR VEINS 6 MEDICAL JAMIN COMPLETE IMAGING ASS BILATERAL STUDY PULMONARY 10420 [place] DANIEL 6 MEDICAL JAMIN VENTILATI IMAGING ON & ASS PERFUSION IMAGING ECHO 30225 [facility] R-T 6 MEDICAL 2D SERV W/WOM-MOD FOUNDATIO E COMPL N SPEC&COLR D INITIAL 06622 [facility] 6 PHYSICIAN MAT CARE/DAY S GROUP 70 MINUTES SBSQ [address] 15 MINUTES ECG 01502 MIRANDA HYATT JR ROUTINE 6 [facility] W/LEAST P 12 LDS I&R ONLY INITIAL [address] 50 MINUTES ECG 45097 MIRANDA HYATT JR ROUTINE 6 [facility] W/LEAST P 12 LDS I&R ONLY RADIOLOGI 25320 [place] AW[facility] ALL C EXAM 6 MEDICAL CHEST 2 IMAGING VIEWS ASS FRONTAL&L ATERAL Encounters Encounter Start End Date Code Location Performer Type Date HOSPITAL MIRANDA Munoz 7 [facility] OUTPATIEN INC T OFFICE 91531 [facility] OUTPATIKALA 7 7 PHYSICIAN T VISIT S GROUP 15 MINUTES EMERGENCY 52347 M[facility] 7 7 [facility] DEPARTMEN INC T VISIT MODERATE SEVERITY HOSPITAL MIRANDA Munoz 7 [facility] OUTPATIEN INC T EMERGENCY 65620 [facility] MCKEON DEPT 7 7 PHYSICIAN VISIT S, PLLC HIGH SEVERITY& THREAT FUNCJ OFFICE 37852 [facility] OUTPATIEN 7 7 PHYSICIAN T VISIT S GROUP 25 MINUTES HOSPITAL MIRANDA - 7 7 [facility] OUTPATIEN INC HOSPITAL MIRANDA - 7 7 [facility] OUTPATIEN INC T OFFICE 32659 [facility] JOSS JR OUTPATIEN 6 6 PHYSICIAN RUDY T VISIT S GROUP 10 MINUTES HOSPITAL MIRANDA - 6 6 [facility] OUTPATIEN INC T INITIAL 69926 [facility] GAN PREVENTIV 6 6 PHYSICIAN VAZQUEZ E S GROUP MEDICINE NEW PATIENT 40-64YRS OFFICE 27789 [facility] FRYMAN OUTPATIEN 6 6 PHYSICIAN EUG T VISIT S GROUP 15 MINUTES HOSPITAL MIRANDA - 6 6 [facility] OUTPATIEN INC HOSPITAL MIRANDA - 6 6 [facility] OUTPATIEN INC T EMERGENCY 67784 M[facility]ANDA 6 6 [facility] DEPARTMEN INC T VISIT MODERATE SEVERITY EMERGENCY 28527 [facility] FOX 6 6 PHYSICIAN U LETI DEPARTMEN S, [facility] T VISIT HIGH/URGE NT SEVERITY HOSPITAL MIRANDA - 6 6 [facility] OUTPATIEN INC T OFFICE 94472 [facility] AIDE OUTPATIEN 6 6 PHYSICIAN SHORTY T VISIT S GROUP 15 MINUTES HOSPITAL MIRANDA - 6 6 [facility] OUTPATIEN INC T OFFICE 01307 [facility] FRYMAN OUTPATIEN 6 6 PHYSICIAN EUG T VISIT S GROUP 15 MINUTES HOSPITAL MIRANDA - 6 6 [facility] OUTPATIEN INC T OFFICE 59305 [facility] AIDE OUTPATIEN 6 6 PHYSICIAN SHORTY T VISIT S GROUP 10 MINUTES OFFICE 80817 LEONEL QUIROGA OUTPATIEN 6 6 MEDICAL T VISIT SERV 25 FOUNDATIO MINUTES HOSPITAL MIRANDA - 6 6 [facility] OUTPATIEN INC T OFFICE 92930 [facility] AIDE OUTPATIEN 6 6 PHYSICIAN SHORTY T VISIT S GROUP 15 MINUTES EMERGENCY 11381 LEONEL NORMAN 6 6 MEDICAL LEXII DEPARTMEN SERV T VISIT FOUNDATIO MODERATE N SEVERITY HOSPITAL [facility] - 6 6 [facility] OUTPATIEN E T HOSPITALS EMERGENCY 22088 DIALLO NOBLE DEPT 6 6 PHYSICIAN SHORTY VISIT S, PLLC HIGH SEVERITY& THREAT FUNCJ EMERGENCY 81163 MIRANDA 6 6 [facility] DEPARTMEN INC T VISIT HIGH/URGE NT SEVERITY EMERGENCY 42400 LEONEL ESCALANTE DEPT 6 6 MEDICAL CAMERON VISIT SERV HIGH FOUNDATIO SEVERITY& N THREAT [facility] UNIVERSIT - 6 6 Y INPATIENT HOSPITAL EMERGENCY 41111 MIRANDA 6 6 [facility] DEPARTMEN INC T VISIT HIGH/URGE NT SEVERITY EMERGENCY 01183 [facility]O BRANDON DEPT 6 6 PHYSICIAN VISIT S, PLLC HIGH SEVERITY& THREAT FUNCJ EMERGENCY 30259 [facility] NOYOLA 6 6 PHYSICIAN FOR DEPARTMEN S, PLLC T VISIT HIGH/URGE NT SEVERITY
--- OUTSIDE RECORDS SUMMARY | 2017-08-15 04:31 | External Medical Summary Rpt ---
Author Author , NAYA Organization NAYA Address Unknown Phone [email or web address] Team Providers Care Rn Burn Name Role Phone ESCALANTE CAMERON, ESCALANTE Unavailable Unavailable CAMERON ALLRAN JR RUDY, ALLRAN Unavailable Unavailable JR RUDY BEINEKE, BEINEKE Unavailable Unavailable BESSON, BESSON Unavailable Unavailable BESSON RAMBO, BESSON Unavailable Unavailable RAMBO AWAD, AWAD Unavailable Unavailable AWAD ALL, AWAD ALL Unavailable Unavailable [facility] Unavailable Unavailable SERVICE, [facility] GAN VAZQUEZ, GAN Unavailable Unavailable [facility] Unavailable Unavailable [facility] DANIEL JAMIN, Unavailable Unavailable DANIEL JAMIN JACKSON MAT, JACKSON Unavailable Unavailable MAT FRYMAN, FRYMAN Unavailable Unavailable FRYMAN EUG, FRYMAN Unavailable Unavailable EUG AIDE SHORTY, AIDE Unavailable Unavailable SHORTY [facility] Unavailable Unavailable INC, [facility] Unavailable Unavailable HOSPITAL P, [facility] P [facility], Unavailable Unavailable [facility] MCKEON, MCKEON Unavailable Unavailable EMERSON LEXII, Unavailable Unavailable EMERSON LEXII [facility] Unavailable Unavailable [facility], [facility], [facility] Unavailable Unavailable [facility], [place] [...] BHAGAT MENA, BHAGAT MENA Unavailable Unavailable SOTINGEANU LEIT, Unavailable Unavailable SOTINGEANU LETI VASILE RIZWANA, VASILE Unavailable Unavailable [facility] Unavailable Unavailable [facility]PITALS, [facility] WALKER FOR, WALKER Unavailable Unavailable FOR Purpose Continuity of Care Document - 01-28-2016 through 2016 Problems Code Diagnosis DOS Provider Status R928 OTH ABNORM 06-14-2017 [facility] INCONCLUSIV INC E FIND ON DX IMAG BREAST Z1231 ENCOUNTER 06-14-2017 [facility] SCREENING [facility] MAMMO MALIG IMAGING ASS NEOPLASM BREAST I10 ESSENTIAL 06-06-2017 [facility] PRIMARY PHYSICIANS HYPERTENSIO GROUP N G459 TRANSIENT 04-26-2017 [facility] CEREBRAL PHYS[facility]IANS, ISCHEMIC PLLC ATTACK UNSPECIFIED R062 WHEEZING 04-26-2017 [facility] R200 ANESTHESIA 04-26-2017 [facility] SKIN MEDICAL IMAGING ASS R202 PARESTHESIA 04-26-2017 [facility] SKIN MEDICAL IMAGING ASS E785 HYPERLIPIDE 12-06-2016 [facility] JOAQUIN PHYSICIANS UNSPECIFIED GROUP 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 UNSPECIFIED K5731 DIVERTICULO 10-02-2016 [facility] SIS LG PHYSICIANS INTEST W/O GROUP PERF/ABSC W/BLEED 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 K5730 DIVERTICULO 09-12-2016 [facility] SIS LG PHYSICIANS INTEST W/O GROUP PERF/ABSC W/O BLEED R1030 LOWER 09-12-2016 [facility] ABDOMINAL PHYSICIANS PAIN GROUP UNSPECIFIED Z1211 ENCOUNTER 09-12-2016 [facility] AN[facility] MALIGNANT [facility]UE NEOPLASM OF COLON J60303 ENCOUNTER 08-29-2016 [facility], CHILD SUPPORT INVESTIGATOR EXAM LLC GENERAL RTN W/O ABNORMAL FIND R748 ABNORMAL 08-28-2016 [facility] LEVELS OF PHYSICIANS OTHER SERUM GROUP ENZYMES R7989 OTHER SPEC 08-16-2016 [facility]NORMAL [facility] FINDINGS INC BLOOD CHEMISTRY K5289 OTH SPEC 08-07-2016 [facility] NONINFECTIV PHYSICIANS, E PLLC [...] SITE NOT SPECIFIED R1031 RIGHT LOWER 08-07-2016 [facility] MEDICAL PAIN IMAGING ASS Z8673 PERSONAL HX 03-13-2016 [facility] SERV CEREB [facility] INFARCT NO RESID DEFICIT R079 CHEST PAIN 02-25-2016 [facility] P R209 UNSPECIFIED 2016 [facility] S OF SKIN SENSATION I378 OTHER 02-03-2016 [facility] 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 G8191 HEMIPLEGIA 02-02-2016 [facility] UNS SERV AFFECTING [facility] RIGHT DOMINANT SIDE 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, UNS PLLC OCCL/STEN UNS CEREB ART J59128 CEREBRAL 02-02-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 UNS SERV OCCL/STEN FOUNDATION LT CEREBELLAR ART R0789 OTHER CHEST 02-02-2016 [facility] PAIN SERV [facility] R0989 OTH SPEC SX 02-01-2016 [facility] & SIGNS PHYSICIANS INVLV THE GROUP CIRC & RESP SYS I2510 ASHD [place] 01-31-2016 [facility]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 [id number] ADVERSE 01-28-2016 [facility] P NTS INITIAL ENCOUNTER Medications Na [...] Procedure DOS Code Location Performer Comment SCREENING G0202 [facility] 7 MEDICAL MAMMOGRAP IMAGING HY MARINA ASS INCL CAD WHEN PERFORMD SCREENING 95404 [facility] JEAN 7 [facility] MAMMOGRAP INC INC HY [place] 2-[place] [address] MIRANDA M[facility]DA HEAD/BRAI 7 [facility] N W/O INC INC CONTRAST MATERIAL COMPREHEN 12896 [facility]DA JEAN SIVE 7 [facility] [place] [address] M[facility]DA JEAN CERVICAL 7 [facility] SPINE W/O INC INC CONTRAST MATERIAL DUPLEX 68316 M[facility]DA M[facility]DA SCAN 7 [facility] EXTRACRAN INC INC IAL ART COMPL BI STUDY BLOOD 43657 [facility]DA JEAN COUNT 7 [facility] COMPLETE INC INC AUTO&[place] [address] MIRANDA MIR[facility]DA TROPONIN 7 [facility] QUANTITAT INC INC ANNA RADIOLOGI 51045 M[facility]DA JEAN C EXAM 7 [facility] CHEST 2 INC INC VIEWS FRONTAL&L ATERAL ECG 07807 M[facility]DA ZHANG ROUTINE 7 [facility] W/LEAST P 12 LDS I&R ONLY CREATINE 32519 [facility]DA JEAN KINASE 7 [facility] TOTAL INC INC ECG 13308 M[facility]ANDA M[facility]DA ROUTINE 7 [facility] ECG INC INC W/LEAST 12 LDS TRCG ONLY W/O I&R CREATINE 58069 MIRANDA JEAN KINASE MB 7 [facility] FRACTION INC INC ONLY URNLS DIP 57597 [facility] JEAN 7 [facility] STICK/TAB INC INC LET REAGENT AUTO MICROSCOP Y LIPID 14669 [facility]DA JEAN PANEL 7 [place] [address] M[facility]DA JEAN FREE 7 [facility] THYROXINE INC INC GENERAL 61301 [facility] 7 [facility] PANEL INC INC US BREAST 33559 M[facility]DA JEAN UNI REAL 7 [facility] TIME INC INC WITH IMAGE COMPLETE DIAGNOSTI 22583 [facility] 7 MEDICAL MAMMOGRAP IMAGING HY ASS COMPUTER- AIDED DETCJ UNI US BREAST 03505 [facility] UNI REAL 7 MEDICAL TIME IMAGING WITH ASS IMAGE LIMITED DIAGNOSTI G0206 [facility] 7 MEDICAL MAMMOGRAP IMAGING HY INCL ASS CAD WHEN [place]; [place] [address] [facility] GILLIS SURG 6 [facility] PATHOLOGY GROSS&SHORTY ROSCOPIC EXAM COLSC FLX [address] [facility] JOSS JR W/RMVL 6 PHYSICIAN RUDY OF TUMOR S GROUP POLYP LESION SNARE TQ ANES 57114 [facility] 6 ANESTH [place]IZ[place] INTESTINE OF THE [place] [address] MIRANDA JEAN INFUSION 6 [facility] THERAPY INC INC PROPHYLAX IS/DX EA HOUR COLONOSCO 70978 [facility] JEAN PY 6 [facility] W/BIOPSY INC INC SINGLE/[place] [address] MIRANDA JEAN INFUSION 6 [facility] THERAPY/P INC INC ROPHYLAXI S /DX 1ST TO 1 HR CYTP C/V 34984 [facility], PICKLESIM AUTO THIN 6 [facility] ER JR PATRICK LYR PREPJ SCR MNL RESCR PHYS LIPID 80972 M[facility]DA JEAN PANEL 6 [place] [address] M[facility]DA JEAN ABDOMINAL 6 [facility] REAL INC INC TIME W/IMAGE LIMITED HEPATIC 88031 M[facility]DA JEAN FUNCTION 6 [facility] PANEL INC INC PROTHROMB 96831 M[facility]DA JEAN IN TIME 6 [facility] INC INC HEPATITIS 83781 M[facility]DA JEAN B CORE 6 [facility] ANTIBODY INC INC HBCAB TOTAL HEPATITIS 18829 M[facility]DA Cobian SURF 6 [facility] [address] MIRANDA JEAN HEPATITIS 6 [facility] B INC INC SURFACE ANTIGEN HEPATITIS 66566 [facility]DA JEAN C 6 [facility] ANTIBODY INC INC COLLECTIO 04975 M[facility]DA JEAN N VENOUS 6 [facility] BLOOD INC INC VENIPUNCT URE HEPATITIS 45845 M[facility] JEAN A 6 [facility] ANTIBODY INC INC HAAB COLLECTIO 00466 M[facility]DA JEAN N VENOUS 6 [facility] BLOOD INC INC VENIPUNCT URE COMPREHEN 67313 [facility]DA JEAN SIVE 6 [facility] METABOLIC INC INC PANEL BLOOD 99694 M[facility]DA JEAN COUNT 6 [facility] COMPLETE INC INC AUTO&[place] [address] MIRANDA JEAN LIPASE 6 [place] [address] MIRANDA JEAN ABDOMEN & 6 [facility] PELVIS INC INC W/[place] [address] M[facility]DA JEAN AMYLASE 6 [facility] INC INC URNLS DIP 08653 [facility] JEAN 6 [facility] STICK/TAB INC INC LET REAGENT AUTO MICROSCOP Y DIAGNOSTI G0206 [facility] ALL C 6 MEDICAL MAMMOGRAP IMAGING HY INCL ASS CAD WHEN PERF; UNI US BREAST 24469 [facility] ALL UNI REAL 6 MEDICAL TIME IMAGING WITH ASS IMAGE LIMITED US BREAST 43111 M[facility]DA JEAN UNI REAL 6 [facility] TIME INC INC WITH IMAGE COMPLETE COMPUTER- 44305 M[facility]DA JEAN AIDED 6 [facility] DETECTION INC INC SCREENING MAMMOGRAP HY SCREENING G0202 [facility]DA JEAN 6 [facility] MAMMOGRAP INC INC HY MARINA INCL CAD WHEN PERFORMD CV STRS 38502 MIRANDA ZHANG TST 6 [facility] RX CONT P ECG W/O I&R CV STRS 79378 [facility]DA JEAN TST 6 [facility] XERS&/OR INC INC RX CONT ECG TRCG ONLY CV STRS 46176 MIRANDA ZHANG TST [address] [facility] RX CONT P ECG I&R ONLY CREATINE 72055 M[facility]DA JEAN KINASE 6 [facility] TOTAL INC INC COMPREHEN 09464 M[facility]DA JEAN SIVE 6 [facility] METABOLIC INC INC PANEL THROMBOPL 59026 M[facility]DA JEAN ASTIN 6 [facility] TIME INC INC PARTIAL PLASMA/[place] [address] [facility] DANIEL HEAD/BRAI 6 MEDICAL JAMIN N W/O IMAGING CONTRAST ASS MATERIAL CREATINE 55535 MIRANDA JEAN KINASE MB 6 [facility] FRACTION INC INC ONLY ECG 29722 M[facility]DA JEAN ROUTINE 6 [facility] ECG INC INC W/LEAST 12 LDS TRCG ONLY W/O I&[place] [address] MIRANDA JEAN TROPONIN 6 [facility]OS[facility] QUANTITAT INC INC ANNA BLOOD 85288 MIRANDA JEAN COUNT 6 [facility] COMPLETE INC INC AUTO&AUTO DIFRNTL WBC PROTHROMB 21462 MIRANDA JEAN IN TIME 6 [facility] INC INC ECG 77377 MIRANDA HYATT JR ROUTINE 6 [facility] W/LEAST P 12 LDS I&R ONLY ECHO 81733 [facility] T[facility]-T 6 MEDICAL 2D SERV W/WOM-MOD FOUNDATIO E COMPL N SPEC&COLR D SBSQ 89634 [facility] 6 MEDICAL CARE/DAY SERV 25 FOUNDATIO MINUTES N INITIAL 93469 [facility] 6 MEDICAL CARE/DAY SERV 30 FOUNDATIO MINUTES N RADIOLOGI 31873 MIRANDA JEAN C 6 [facility] EXAMINATI INC [place] [address] MIRANDA JEAN HEAD/BRAI 6 [facility] N W/O INC INC CONTRAST MATERIAL ECG 86973 LEONEL RAY CHI ROUTINE 6 MEDICAL ECG SERV W/LEAST FOUNDATIO 12 LDS N I&R ONLY ECG 70596 MIRANDA JEAN ROUTINE 6 [facility] ECG INC INC W/LEAST 12 LDS TRCG ONLY W/O I&R THER 89175 MIRANDA JEAN PROPH/DX 6 [facility]OS[facility] NJX IV INC INC PUSH SINGLE/1S T SBST/DRUG GROUND A0425 [facility] MILEAGE 6 AMBULANCE AMBULANCE PER SERVICE SERVICE STATUTE MILE CRITICAL 23147 [facility] 6 PHYSICIAN MAT ILL/INJUR S, PLLC ED PATIENT INIT 30-[address] [facility] SERVICE 6 AMBULANCE AMBULANCE ALS SERVICE SERVICE EMERGENCY TRANSPORT LEVEL 1 RIGHT 58617 [facility] 6 PHYSICIAN MAT CATH O2 S GROUP SATURATIO N & [facility] 29187 [facility] AIDE DISCHARGE 6 PHYSICIAN SHORTY DAY S GROUP MANAGEMEN T 30 MIN/< DUP-SCAN 45931 MERARY SANCHEZ XTR VEINS 6 MEDICAL JAMIN COMPLETE IMAGING ASS BILATERAL STUDY ECHO 75425 LEONEL SAN [facility] R-T 6 MEDICAL 2D SERV W/WOM-MOD FOUNDATIO E COMPL N SPEC&COLR D INITIAL 52240 [facility] 6 PHYSICIAN MAT CARE/DAY S GROUP 70 MINUTES SBSQ [address] 15 MINUTES PULMONARY 71458 MERARY GALARZACHER 6 MEDICAL JAMIN VENTILATI IMAGING ON & ASS PERFUSION IMAGING INITIAL [address] 50 MINUTES ECG 29486 MIRANDA HYATT JR ROUTINE 6 [facility] W/LEAST P 12 LDS I&R ONLY ECG 63626 MIRANDA HYATT JR ROUTINE 6 [facility] W/LEAST P 12 LDS I&R ONLY RADIOLOGI 26193 [facility] ALL C EXAM 6 MEDICAL CHEST 2 IMAGING VIEWS ASS FRONTAL&L ATERAL Encounters Encounter Start End Date Code Location Performer Type Date [facility] MIRANDA Munoz 7 [facility] OUTPATIEN [facility] OFFICE 24786 [facility] 7 PHYSICIAN T VISIT S GROUP 15 MINUTES EMERGENCY 47340 MIRANDA 7 7 [facility] T VISIT MODERATE SEVERITY EMERGENCY 20779 [facility] MCKEON DEPT 7 7 PHYSICIAN VISIT S, PLLC HIGH SEVERITY& THREAT [facility] MIRANDA Munoz 7 [facility] OUTPATIEN [facility] OFFICE 24228 [facility] 7 PHYSICIAN T VISIT S GROUP 25 MINUTES HOSPITAL MIRANDA Munoz 7 [facility] OUTPATIEN [facility] MIRANDA - 7 7 [facility] OUTPATIEN INC T OFFICE 76820 [facility] JOSS JR OUTPATIEN 6 6 PHYSICIAN RUDY T VISIT S GROUP 10 MINUTES HOSPITAL MIRANDA - 6 6 [facility] OUTPATIEN INC T INITIAL 56334 [facility] GAN PREVENTIV 6 6 PHYSICIAN VAZQUEZ E S GROUP MEDICINE NEW PATIENT 40-64YRS OFFICE 53568 [facility] YMAN OUTPATIEN 6 6 PHYSICIAN EUG T VISIT S GROUP 15 MINUTES HOSPITAL MIRANDA - 6 6 [facility] OUTPATIEN INC HOSPITAL MIRANDA - 6 6 [facility] OUTPATIEN INC T EMERGENCY 17797 [facility] FOX 6 6 PHYSICIAN U LETI DEPARTMEN S, [facility] T VISIT HIGH/URGE NT SEVERITY EMERGENCY 50625 MIRANDA 6 6 [facility] DEPARTMEN INC T VISIT MODERATE SEVERITY HOSPITAL MIRANDA - 6 6 [facility] OUTPATIEN INC T OFFICE 99631 [facility] AIDE OUTPATIEN 6 6 PHYSICIAN SHORTY T VISIT S GROUP 15 MINUTES HOSPITAL MIRANDA - 6 6 [facility] OUTPATIEN INC T OFFICE 82924 [facility] FRYMAN OUTPATIEN 6 6 PHYSICIAN EUG T VISIT S GROUP 15 MINUTES HOSPITAL MIRANDA - 6 6 [facility] OUTPATIEN INC T OFFICE 85498 [facility] AIDE OUTPATIEN 6 6 PHYSICIAN SHORTY T VISIT S GROUP 10 MINUTES OFFICE 06178 LEONEL QUIROGA OUTPATIEN 6 6 MEDICAL T VISIT SERV 25 FOUNDATIO MINUTES [facility] MIRANDA - 6 6 [facility] OUTPATIEN INC T OFFICE 69614 [facility] AIDE OUTPATIEN 6 6 PHYSICIAN SHORTY T VISIT S GROUP 15 MINUTES EMERGENCY 92712 LEONEL NORMAN 6 6 MEDICAL [place] DEPARTMEN SERV T VISIT FOUNDATIO MODERATE N SEVERITY EMERGENCY 80012 6 6 [facility] DEPARTMEN E T VISIT HOSPITALS HIGH/URGE NT SEVERITY [facility]OSPITAL [facility] - 6 6 [facility] OUTPATIEN E T HOSPITALS EMERGENCY 79206 DIALLO NOBLE DEPT 6 6 PHYSICIAN SHORTY VISIT S, PLLC HIGH SEVERITY& THREAT FUNCJ EMERGENCY 34774 MIRANDA 6 6 [facility] DEPARTMEN INC T VISIT HIGH/URGE NT SEVERITY HOSPITAL UNIVERSIT - 6 6 Y INPATIENT HOSPITAL EMERGENCY 43262 LEONEL ESCALANTE DEPT 6 6 MEDICAL CAMERON VISIT SERV HIGH FOUNDATIO SEVERITY& N THREAT FUNCJ EMERGENCY 21886 DIALLO [facility]EL [facility] DEPT 6 6 PHYSICIAN VISIT S, PLLC HIGH SEVERITY& THREAT FUNCJ EMERGENCY 39544 DIALLO NOYOLA 6 6 PHYSICIAN FOR DEPARTMEN S, PLLC T VISIT HIGH/URGE NT SEVERITY
--- OUTSIDE RECORDS SUMMARY | 2017-08-15 04:31 | External Medical Summary Rpt ---
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 Name Role Phone ESCALANTE CAMERON, ESCALANTE Unavailable Unavailable CAMERON ALLRAN JR RUDY, ALLRAN Unavailable Unavailable JR RUDY BEINEKE, BEINEKE Unavailable Unavailable BESSON, BESSON Unavailable Unavailable BESSON RAMBO, BESSON Unavailable Unavailable RAMBO AWAD, AWAD Unavailable Unavailable AWAD ALL, AWAD ALL Unavailable Unavailable [facility] Unavailable Unavailable SERVICE, [facility] GAN VAZQUEZ, GAN Unavailable Unavailable [facility] Unavailable Unavailable [facility] DANIEL JAMIN, Unavailable Unavailable DANIEL JAMIN JACKSON MAT, JACKSON Unavailable Unavailable MAT FRYMAN, FRYMAN Unavailable Unavailable FRYMAN EUG, FRYMAN Unavailable Unavailable EUG AIDE SHORTY, AIDE Unavailable Unavailable SHORTY [facility] Unavailable [facility]available INC, [facility] Unavailable Unavailable HOSPITAL P, [facility] P [facility], Unavailable Unavailable [facility] MCKEON, MCKEON Unavailable Unavailable EMERSON LEX[facility], Unavailable Unavailable EMERSON L[facility]II [facility] Unavailable Unavailable IMAGING [facility], [facility] RAY CHI, RAY [facility] [...] Unavailable Unavailable [facility] Unavailable Unavailable HOSPITALS, [facility] WALKER FOR, WALKER Unavailable Unavailable FOR Purpose Continuity of Care Document - 01-28-2016 through 2016 Problems Code Diagnosis DOS Provider Status R928 OTH ABNORM 06-14-2017 [facility] INCONCLUSIV INC E FIND ON DX IMAG BREAST Z1231 ENCOUNTER 06-14-2017 [facility] SCREENING MEDICAL MAMMO MALIG IMAGING ASS NEOPLASM BREAST I10 ESSENTIAL 06-06-2017 [facility] PRIMARY PHYSICIANS HYPERTENSIO GROUP N G459 TRANSIENT 04-26-2017 [facility] CEREBRAL PHYSICIANS, ISCHEMIC PLLC ATTACK UNSPECIFIED R062 WHEEZING 04-26-2017 [facility] R200 ANESTHESIA 04-26-2017 [facility] SKIN MEDICAL IMAGING ASS R202 PARESTHESIA 04-26-2017 [facility] SKIN MEDICAL IMAGING ASS E785 HYPERLIPIDE 12-06-2016 [facility] JOAQUIN PHYSICIANS UNSPECIFIED GROUP 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 K5731 DIVERTICULO 10-02-2016 [facility] SIS LG PHYSICIANS INTEST W/O GROUP PERF/ABSC W/BLEED 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 K5730 DIVERTICULO 09-12-2016 [facility] SIS LG PHYSICIANS INTEST W/O GROUP PERF/ABSC W/O BLEED R1030 LOWER 09-12-2016 [facility] ABDOMINAL PHYSICIANS PAIN GROUP UNSPECIFIED Z1211 ENCOUNTER 09-12-2016 [facility] MALIGNANT [facility] NEOPLASM OF COLON Z84538 ENCOUNTER 08-29-2016 [facility], WHEEL TUNER EXAM LLC GENERAL RTN W/O ABNORMAL FIND R748 ABNORMAL 08-28-2016 [facility] LEVELS OF PHYSICIANS OTHER SERUM GROUP [...] SITE NOT SPECIFIED R1031 RIGHT LOWER 08-07-2016 [facility] MEDICAL PAIN IMAGING ASS Z8673 PERSONAL HX 03-13-2016 [place] [facility] TIA & SERV CEREB FOUNDATION INFARCT NO RESID DEFICIT R079 CHEST PAIN 02-25-2016 [facility] P R209 UNSPECIFIED 2016 [facility] S OF SKIN SENSATION I378 OTHER 02-03-2016 [facility] 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 G8191 HEMIPLEGIA 02-02-2016 [facility] UNS SERV AFFECTING FOUNDATION RIGHT DOMINANT SIDE 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, UNS PLLC OCCL/STEN UNS CEREB ART N41640 CEREBRAL 02-02-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 UNS SERV OCCL/STEN FOUNDATION LT CEREBELLAR ART R0789 OTHER CHEST 02-02-2016 [facility] PAIN SERV FOUNDATION R0989 OTH SPEC SX 02-01-2016 [facility] & SIGNS PHYSICIANS INVLV THE GROUP CIRC & RESP SYS I2510 [facility] [place] 01-31-2016 [place] [facility]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 I2699 OTH 01-31-2016 [facility] PULMONARY PHYSICIANS EMBOLISM GROUP W/O ACUTE COR PULMONALE I361 NONRHEUMATI 01-31-2016 [facility] C TRICUSPID SERV VALVE FOUNDATION INSUFFICIEN CY I371 NONRHEUMATI 01-31-2016 [facility] PULMONARY SERV VALVE FOUNDATION INSUFFICIEN CY R0600 DYSPNEA 01-31-2016 [facility] UNSPECIFIED [facility]ICAL IMAGING ASS O32815 PERSONAL 01-31-2016 [facility] HISTORY OF MEDICAL PULMONARY IMAGING ASS EMBOLISM Q35738 PAIN IN 01-28-2016 [facility] RIGHT MEDICAL SHOULDER IMAGING ASS M47626 PAIN IN 01-28-2016 [facility] RIGHT ARM PHYSICIANS, [facility] [id number] ADVERSE 01-28-2016 [facility] P NTS INITIAL ENCOUNTER Medications Na [...] DOS Code Location Performer Comment SCREENING G0202 [facility] 7 MEDICAL MAMMOGRAP IMAGING HY MARINA ASS INCL CAD WHEN PERFORMD SCREENING 45147 [facility] JEAN 7 [facility] MAMMOGRAP INC INC HY [place] 2-[place] [address] MIRANDA MIRANDA HEAD/BRAI 7 [facility] N W/O INC INC CONTRAST MATERIAL COMPREHEN 53634 [facility]DA JEAN SIVE 7 [facility] [place] [address] M[facility]ANDA JEAN CERVICAL 7 [facility] SPINE W/O INC INC CONTRAST MATERIAL DUPLEX 82016 M[facility]ANDA M[facility]DA SCAN 7 [facility] EXTRACRAN INC INC IAL ART COMPL BI STUDY BLOOD 14992 M[facility]DA JEAN COUNT 7 [facility] COMPLETE INC INC AUTO&[place] [address] MIRANDA MIRANDA TROPONIN 7 [facility] QUANTITAT INC INC ANNA RADIOLOGI 95822 M[facility]DA JEAN C EXAM 7 [facility] CHEST 2 INC INC VIEWS FRONTAL&L ATERAL ECG 98259 MIRANDA ZHANG ROUTINE 7 [facility] W/LEAST P 12 LDS I&R ONLY CREATINE 08604 MIRANDA JEAN KINASE 7 [facility] TOTAL INC INC ECG 20909 MIRANDA MIRANDA ROUTINE 7 [facility] ECG INC INC W/LEAST 12 LDS TRCG ONLY W/O I&R CREATINE 90928 MIRANDA JEAN KINASE MB 7 [facility] FRACTION INC INC ONLY URNLS DIP 66629 [facility] JEAN 7 [facility] STICK/TAB INC INC LET REAGENT AUTO MICROSCOP Y LIPID 74710 MIR[facility]DA JEAN PANEL 7 [place] [address] MIRANDA JEAN FREE 7 [facility] THYROXINE INC INC GENERAL 21892 MIRANDA JEAN HEALTH 7 [facility] PANEL INC INC US BREAST 04699 MIRANDA JEAN UNI REAL 7 [facility] TIME INC INC WITH IMAGE COMPLETE DIAGNOSTI 99728 [facility] 7 MEDICAL MAMMOGRAP IMAGING HY ASS COMPUTER- AIDED DETCJ UNI US BREAST 01713 [facility] UNI REAL 7 MEDICAL TIME IMAGING WITH ASS IMAGE LIMITED DIAGNOSTI G0206 [facility] 7 MEDICAL MAMMOGRAP IMAGING HY INCL ASS CAD WHEN PERF; [place] [address] [facility], GILLIS SURG 6 [facility] PATHOLOGY GROSS&SHORTY [place] FLX [address] [facility] JOSS JR W/RMVL 6 PHYSICIAN RUDY OF TUMOR S GROUP POLYP LESION SNARE TQ ANES [address] [facility] 6 ANESTH [place] INTEST[facility] OF [facility] [place] [address] MIRANDA JEAN INFUSION 6 [facility] THERAPY INC INC PROPHYLAX IS/DX EA HOUR COLONOSCO 63525 [facility] JEAN PY 6 [facility] W/BIOPSY INC INC SINGLE/[place] [address] MIRANDA JEAN INFUSION 6 [facility] THERAPY/P INC INC ROPHYLAXI S /DX 1ST TO 1 HR CYTP C/V 69682 [facility], PICKLESIM AUTO THIN 6 [facility] ER JR PATRICK LYR PREPJ SCR MNL RESCR PHYS LIPID 76990 MIRANDA JEAN PANEL 6 [place] [address] MIRANDA JEAN ABDOMINAL 6 [facility] REAL INC INC TIME W/IMAGE LIMITED HEPATIC 70226 M[facility]DA JEAN FUNCTION 6 [facility] PANEL INC INC PROTHROMB 00774 MIRANDA JEAN IN TIME 6 [facility] INC INC HEPATITIS 75320 MIRANDA JEAN B CORE 6 [facility] ANTIBODY INC INC HBCAB TOTAL HEPATITIS 34159 MIRANDA Cobian SURF 6 [facility] [address] MIRANDA JEAN HEPATITIS 6 [facility] B INC INC SURFACE ANTIGEN HEPATITIS 90547 [facility]DA JEAN C 6 [facility] ANTIBODY INC INC COLLECTIO 69862 MIRANDA JEAN N VENOUS 6 [facility] BLOOD INC INC VENIPUNCT URE HEPATITIS 77135 M[facility]DA JEAN A 6 [facility] ANTIBODY INC INC HAAB COLLECTIO 82833 MIR[facility]DA JEAN N VENOUS 6 [facility] BLOOD INC INC VENIPUNCT URE COMPREHEN 58508 M[facility]DA JEAN SIVE 6 [facility] METABOLIC INC INC PANEL BLOOD 60370 M[facility]DA JEAN COUNT 6 [facility] COMPLETE INC INC AUTO&[place] [address] MIRANDA JEAN LIPASE 6 [place] [address] MIRANDA JEAN ABDOMEN & 6 [facility] PELVIS INC INC W/[place] [address] MIRANDA JEAN AMYLASE 6 [facility] INC INC URNLS DIP 65122 [facility] JEAN 6 [facility] STICK/TAB INC INC LET REAGENT AUTO MICROSCOP Y DIAGNOSTI G0206 [facility] C 6 MEDICAL MAMMOGRAP IMAGING HY INCL ASS CAD WHEN PERF; UNI US BREAST 81086 [facility] ALL UNI REAL 6 MEDICAL TIME IMAGING WITH ASS IMAGE LIMITED US BREAST 80489 M[facility]DA JEAN UNI REAL 6 [facility] TIME INC INC WITH IMAGE COMPLETE COMPUTER- 39010 M[facility]DA JEAN AIDED 6 [facility] DETECTION INC INC SCREENING MAMMOGRAP HY SCREENING G0202 [facility] JEAN 6 [facility] MAMMOGRAP INC INC HY MARINA INCL CAD WHEN PERFORMD CV STRS 75697 MIRANDA ZHANG TST 6 [facility] RX CONT P ECG W/O I&R CV STRS 97494 M[facility]DA JEAN TST 6 [facility] XERS&/OR INC INC RX CONT ECG TRCG ONLY CV STRS 21770 MIRANDA ZHANG TST 6 [facility] RX CONT P ECG I&R ONLY CREATINE 18066 MIRANDA JEAN KINASE 6 [facility] TOTAL INC INC COMPREHEN 95812 M[facility]DA JEAN SIVE 6 [facility] METABOLIC INC INC PANEL THROMBOPL 47236 M[facility]DA JEAN ASTIN 6 [facility] TIME INC INC PARTIAL PLASMA/[place] [address] [facility] DANIEL HEAD/BRAI 6 MEDICAL JAMIN N W/O IMAGING CONTRAST ASS MATERIAL CREATINE 79063 MIRANDA JEAN KINASE MB 6 [facility] FRACTION INC INC ONLY ECG 03242 MIR[facility]DA JEAN ROUTINE 6 [facility] ECG INC INC W/LEAST 12 LDS TRCG ONLY W/O I&[place] [address] MIRANDA JEAN TROPONIN 6 [facility] QUANTITAT INC INC ANNA BLOOD 85127 MIRANDA JEAN COUNT 6 [facility] COMPLETE INC INC AUTO&AUTO DIFRNTL WBC PROTHROMB 99559 MIRANDA JEAN IN TIME 6 [facility]OS[facility] INC INC ECG 83232 MIRANDA HYATT JR ROUTINE 6 [facility] W/LEAST P 12 LDS I&R ONLY ECHO 44556 [facility] T[facility] R-T 6 MEDICAL 2D SERV W/WOM-MOD FOUNDATIO E COMPL N SPEC&COLR D SBSQ 25377 [facility] 6 MEDICAL CARE/DAY SERV 25 FOUNDATIO MINUTES N INITIAL 62631 [facility] 6 MEDICAL CARE/DAY SERV 30 FOUNDATIO MINUTES N RADIOLOGI 22391 MIRANDA JEAN C 6 [facility] EXAMINATI INC [place] [address] MIRANDA JEAN HEAD/BRAI 6 [facility] N W/O INC INC CONTRAST MATERIAL ECG 73179 LEONEL RAY CHI ROUTINE 6 MEDICAL ECG SERV W/LEAST FOUNDATIO 12 LDS N I&R ONLY ECG 16149 MIRANDA JEAN ROUTINE 6 [facility] ECG INC INC W/LEAST 12 LDS TRCG ONLY W/O I&R THER 46952 MIRANDA JEAN PROPH/DX 6 [facility] NJX IV INC INC PUSH SINGLE/1S T SBST/DRUG GROUND A0425 [facility] MILEAGE 6 AMBULANCE AMBULANCE PER SERVICE SERVICE STATUTE MILE CRITICAL 80819 [facility] 6 PHYSICIAN MAT ILL/INJUR S, PLLC ED PATIENT INIT 30-74 MIN AMB A0427 [facility] SERVICE 6 AMBULANCE AMBULANCE ALS SERVICE SERVICE EMERGENCY TRANSPORT LEVEL 1 RIGHT 98742 [facility] HEART 6 PHYSICIAN MAT CATH O2 S GROUP [facility] 35333 [facility] AIDE DISCHARGE 6 PHYSICIAN SHORTY DAY S GROUP MANAGEMEN T 30 MIN/< DUP-SCAN 04861 MERARY SANCHEZ XTR VEINS 6 MEDICAL JAMIN COMPLETE IMAGING ASS BILATERAL STUDY ECHO 12003 LEONEL SAN [facility] R-T 6 MEDICAL 2D SERV W/WOM-MOD FOUNDATIO E COMPL N SPEC&COLR D INITIAL 65411 [facility] 6 PHYSICIAN MAT CARE/DAY S GROUP 70 MINUTES SBSQ [address] 15 MINUTES PULMONARY 06568 MERARY GALARZACHER 6 MEDICAL JAMIN VENTILATI IMAGING ON & ASS PERFUSION IMAGING INITIAL [address] 50 MINUTES ECG 57573 MIRANDA HYATT JR ROUTINE 6 [facility] W/LEAST P 12 LDS I&R ONLY ECG 82965 MIRANDA HYATT JR ROUTINE 6 [facility] W/LEAST P 12 LDS I&R ONLY RADIOLOGI 43664 [facility] C EXAM 6 MEDICAL CHEST 2 IMAGING VIEWS ASS FRONTAL&L ATERAL Encounters Encounter Start End Date Code Location Performer Type Date [facility] MIRANDA Munoz 7 [facility] OUTPATIEN [facility] OFFICE 19388 [facility] 7 7 PHYSICIAN T VISIT S GROUP 15 MINUTES EMERGENCY 38799 MIRANDA 7 7 [facility] T VISIT MODERATE SEVERITY EMERGENCY 70910 [facility] MCKEON DEPT 7 7 PHYSICIAN VISIT S, PLLC HIGH SEVERITY& THREAT [facility] MIRANDA Munoz 7 [facility] OUTPATIEN [facility] OFFICE 64098 [facility] 7 7 PHYSICIAN T VISIT S GROUP 25 MINUTES HOSPITAL MIRANDA Munoz 7 [facility] OUTPATIEN [facility] MIRANDA - 7 7 [facility] OUTPATIEN INC T OFFICE 13066 [facility] JOSS JR OUTPATIEN 6 6 PHYSICIAN RUDY T VISIT S GROUP 10 MINUTES HOSPITAL MIRANDA - 6 6 [facility] OUTPATIEN INC T INITIAL 24681 [facility] GAN PREVENTIV 6 6 PHYSICIAN VAZQUEZ E S GROUP MEDICINE NEW PATIENT 40-64YRS OFFICE 35307 [facility] YMAN OUTPATIEN 6 6 PHYSICIAN EUG T VISIT S GROUP 15 MINUTES HOSPITAL MIRANDA - 6 6 [facility] OUTPATIEN INC HOSPITAL MIRANDA - 6 6 [facility] OUTPATIEN INC T EMERGENCY 66246 DIALLO FOX 6 6 PHYSICIAN U LETI DEPARTMEN S, [facility] T VISIT HIGH/URGE NT SEVERITY EMERGENCY 96101 MIRANDA 6 6 [facility] DEPARTMEN INC T VISIT MODERATE SEVERITY HOSPITAL MIRANDA - 6 6 [facility] OUTPATIEN INC T OFFICE 43344 [facility] AIDE OUTPATIEN 6 6 PHYSICIAN SHORTY T VISIT S GROUP 15 MINUTES HOSPITAL MIRANDA - 6 6 [facility] OUTPATIEN INC T OFFICE 17629 [facility] FRYMAN OUTPATIEN 6 6 PHYSICIAN EUG T VISIT S GROUP 15 MINUTES HOSPITAL MIRANDA - 6 6 [facility] OUTPATIEN INC T OFFICE 21433 [facility] AIDE OUTPATIEN 6 6 PHYSICIAN SHORTY T VISIT S GROUP 10 MINUTES OFFICE 74714 LEONEL QUIROGA OUTPATIEN 6 6 MEDICAL T VISIT SERV 25 FOUNDATIO MINUTES [facility] MIRANDA - 6 6 [facility] OUTPATIEN INC T OFFICE 24483 [facility] AIDE OUTPATIEN 6 6 PHYSICIAN SHORTY T VISIT S GROUP 15 MINUTES EMERGENCY 80386 LEONEL NORMAN 6 6 MEDICAL [place] DEPARTMEN SERV T VISIT FOUNDATIO MODERATE N SEVERITY EMERGENCY 11649 6 6 [facility] DEPARTMEN E T VISIT HOSPITALS HIGH/URGE NT SEVERITY [facility]OSPITAL [facility] - 6 6 [facility] OUTPATIEN E T HOSPITALS EMERGENCY 73067 DIALLO NOBLE DEPT 6 6 PHYSICIAN SHORTY VISIT S, PLLC HIGH SEVERITY& THREAT FUNCJ EMERGENCY 30584 MIRANDA 6 6 [facility] DEPARTMEN INC T VISIT HIGH/URGE NT SEVERITY HOSPITAL UNIVERSIT - 6 6 Y INPATIENT HOSPITAL EMERGENCY 15325 LEONEL ESCALANTE DEPT 6 6 MEDICAL CAMERON VISIT SERV HIGH FOUNDATIO SEVERITY& N THREAT FUNCJ EMERGENCY 83596 DIALLO EMANUEL [facility] DEPT 6 6 PHYSICIAN VISIT S, PLLC HIGH SEVERITY& THREAT FUNCJ EMERGENCY 31727 DIALLO NOYOLA 6 6 PHYSICIAN FOR DEPARTMEN S, PLLC T VISIT HIGH/URGE NT SEVERITY
--- OUTSIDE RECORDS SUMMARY | 2017-08-15 04:32 | External Medical Summary Rpt ---
Author Author [facility], [employer] Organization [employer] Address Unknown Phone Unavailable Results Basic metabolic panel in Blood Observa Value Referen Units Interpr Notes Date tion ce etation Range Urea 7 - 18 mg/dL Normal No Sep 19 nitrogen informati 2017 6:01 [Mass/vol on in AM ume] in source Serum or data Plasma Calcium 8.5 - mg/dL Normal No Sep 19 [Mass/vol 10.1 informati 2017 6:01 ume] in on in AM Serum or source Plasma data Chloride 98 - 107 mmoL/L Normal No Sep 19 [Moles/vo informati 2017 6:01 lume] in on in AM Serum or source Plasma data Carbon 21.0 - mmoL/L Normal No Sep 19 dioxide, 32.0 informati 2017 6:01 total on in AM [Moles/vo source lume] in data Serum or Plasma Creatinin 0.55 - mg/dL Normal No Sep 19 e 1.02 informati 2017 6:01 [Mass/vol on in AM ume] in source Serum or data Plasma Creatinin 50 - 200 ML/MIN Normal No Sep 19 e renal informati 2017 6:01 clearance on in AM source predicted data by Cockcroft -Gault formula Estimated 59- ML/MIN No REFERENCE Sep 19 informati RANGE: 2017 6:01 glomerula on in >60 AM r source ML/MIN/1. filtratio data 73 SQUARE n rate METERSIf (GF this patient is -A merican, then multiply theresult by 1.210. Glucose 74 - 106 mg/dL Normal No Sep 19 [Mass/vol informati 2017 6:01 ume] in on in AM Serum or source Plasma data Potassium 3.5 - 5.1 mmoL/L Normal No Sep 19 informati 2017 6:01 [Moles/vo on in AM lume] in source Serum or data Plasma Sodium 136 - 145 mmoL/L Normal No Sep 19 [Moles/vo informati 2017 6:01 lume] in on in AM Serum or source Plasma data CBC W Auto Differential panel in Blood Observa Value Referen Units Interpr Notes Date tion ce etation Range Basophils 0 - 0.2 K/MM3 Normal No Sep 19 informati 2017 6:01 [#/volume on in AM ] in source Blood by data Automated count Basophils 0.1 - 2.0 % Normal No Sep 19 /100 informati 2017 6:01 leukocyte on in AM s in source Blood by data Automated count Eosinophi 0.0 - 0.4 K/mm3 Normal No Sep 19 ls informati 2017 6:01 [#/volume on in AM ] in source Blood by data Automated count Eosinophi 0.1 - % Normal No Sep 19 ls/100 12.0 informati 2017 6:01 leukocyte on in AM s in source Blood by data Automated count Granulocy 1.8 - 7.8 K/mm3 Normal No Sep 19 sandra informati 2017 6:01 [#/volume on in AM ] in source Blood by data Automated count Granulocy 37.0 - % Normal No Sep 19 sandra/100 80.0 informati 2017 6:01 leukocyte on in AM s in source Blood by data Automated count Hematocri 37.0 - % Normal No Sep 19 t [Volume 47.0 informati 2017 6:01 on in AM Fraction] source of Blood data Hemoglobi 12.2 - g/dL Normal No Sep 19 n 16.2 informati 2017 6:01 [Mass/vol on in AM ume] in source Blood data Lymphocyt 0.7 - 4.5 K/mm3 Normal No Sep 19 es informati 2017 6:01 [#/volume on in AM ] in source Unspecifi data ed specimen by Automated count Lymphocyt 10 - 50.0 % Normal No Sep 19 es informati 2017 6:01 [#/volume on in AM ] in source Unspecifi data ed specimen by Automated count Erythrocy 27 - 31.2 pg High No Sep 19 te mean informati 2017 6:01 corpuscul on in AM ar source hemoglobi data n [Entitic mass] Erythrocy 31.8 - g/dl Normal No Sep 19 te mean 35.4 informati 2017 6:01 corpuscul on in AM ar source hemoglobi data n concentra tion [Mass/vol ume] by Automated count Erythrocy 82.2 - fl Normal No Sep 19 te mean 97.8 informati 2017 6:01 corpuscul on in AM ar volume source [Entitic data volume] by Automated count Monocytes 0.1 - 1.0 K/mm3 Normal No Sep 19 informati 2016 6:01 [#/volume on in AM ] in source Blood by data Automated count Monocytes 1.7 - 9.3 % Normal No Sep 19 /100 informati 2016 6:01 leukocyte on in AM s in source Blood by data Automated count Platelet 7.4 - fl High No Sep 19 mean 10.4 informati 2016 6:01 volume on in AM [Entitic source volume] data in Blood by Automated count Platelets 142 - 424 K/mm3 Normal No Sep 19 informati 2016 6:01 [#/volume on in AM ] in source Blood data Erythrocy 4.2 - 5.4 M/mm3 Normal No Sep 19 sandra informati 2016 6:01 [#/volume on in AM ] in source Amniotic data fluid Erythrocy 11.5 - % Normal No Sep 19 te 17.5 informati 2016 6:01 distribut on in AM ion width source [Entitic data volume] by Automated count Leukocyte 4.8 - K/MM3 Normal No Sep 19 s 10.8 informati 2016 6:01 [#/volume on in AM ] in source Blood data Glucose [Mass/volume] in Capillary blood by Glucometer Observa Value Referen Units Interpr Notes Date tion ce etation Range Glucose 70 - 110 mg/dl Normal No Sep 18 [Mass/vol informati 2016 5:09 ume] in on in PM Capillary source blood by data Glucomete r CBC W Auto Differential panel in Blood Observa Value Referen Units Interpr Notes Date tion ce etation Range Basophils 0 - 0.2 K/MM3 Normal No Sep 18 informati 2016 1:45 [#/volume on in PM ] in source Blood by data Automated count Basophils 0.1 - 2.0 % Normal No Sep 18 /100 informati 2016 1:45 leukocyte on in PM s in source Blood by data Automated count Eosinophi 0.0 - 0.4 K/mm3 Normal No Sep 18 ls informati 2016 1:45 [#/volume on in PM ] in source Blood by data Automated count Eosinophi 0.1 - % Normal No Sep 18 ls/100 12.0 informati 2016 1:45 leukocyte on in PM s in source Blood by data Automated count Granulocy 1.8 - 7.8 K/mm3 Normal No Sep 18 sandra informati 2017 1:45 [#/volume on in PM ] in source Blood by data Automated count Granulocy 37.0 - % Normal No Sep 18 sandra/100 80.0 informati 2017 1:45 leukocyte on in PM s in source Blood by data Automated count Hematocri 37.0 - % Normal No Sep 18 t [Volume 47.0 informati 2017 1:45 on in PM Fraction] source of Blood data Hemoglobi 12.2 - g/dL Normal No Sep 18 n 16.2 informati 2017 1:45 [Mass/vol on in PM ume] in source Blood data Lymphocyt 0.7 - 4.5 K/mm3 Normal No Sep 18 es informati 2017 1:45 [#/volume on in PM ] in source Unspecifi data ed specimen by Automated count Lymphocyt 10 - 50.0 % Normal No Sep 18 es informati 2016 1:45 [#/volume on in PM ] in source Unspecifi data ed specimen by Automated count Erythrocy 27 - 31.2 pg High No Sep 18 te mean informati 2016 1:45 corpuscul on in PM ar source hemoglobi data n [Entitic mass] Erythrocy 31.8 - g/dl Normal No Sep 18 te mean 35.4 informati 2017 1:45 corpuscul on in PM ar source hemoglobi data n concentra tion [Mass/vol ume] by Automated count Erythrocy 82.2 - fl Normal No Sep 18 te mean 97.8 informati 2016 1:45 corpuscul on in PM ar volume source [Entitic data volume] by Automated count Monocytes 0.1 - 1.0 K/mm3 Normal No Sep 18 informati 2016 1:45 [#/volume on in PM ] in source Blood by data Automated count Monocytes 1.7 - 9.3 % Normal No Sep 18 /100 informati 2017 1:45 leukocyte on in PM s in source Blood by data Automated count Platelet 7.4 - fl High No Sep 18 mean 10.4 informati 2017 1:45 volume on in PM [Entitic source volume] data in Blood by Automated count Platelets 142 - 424 K/mm3 Normal No Sep 18 informati 2017 1:45 [#/volume on in PM ] in source Blood data Erythrocy 4.2 - 5.4 M/mm3 Normal No Sep 18 sandra informati 2016 1:45 [#/volume on in PM ] in source Amniotic data fluid Erythrocy 11.5 - % Normal No Jul 18 te 17.5 informati 2017 1:45 distribut on in PM ion width source [Entitic data volume] by Automated count Leukocyte 4.8 - K/MM3 Normal No Jul 18 s 10.8 informati 2017 1:45 [#/volume on in PM ] in source Blood data CBC W Auto Differential panel in Blood Observa Value Referen Units Interpr Notes Date tion ce etation Range Basophils 0 - 0.2 K/MM3 Normal No Apr 26 informati 2017 6:30 [#/volume on in AM ] in source Blood by data Automated count Basophils 0.1 - 2.0 % Normal No Apr 26 /100 informati 2017 6:30 leukocyte on in AM s in source Blood by data Automated count Eosinophi 0.0 - 0.4 K/mm3 Normal No Apr 26 ls informati 2016 6:30 [#/volume on in AM ] in source Blood by data Automated count Eosinophi 0.1 - % Normal No Apr 26 ls/100 12.0 informati 2017 6:30 leukocyte on in AM s in source Blood by data Automated count Granulocy 1.8 - 7.8 K/mm3 Normal No Apr 26 sandra informati 2017 6:30 [#/volume on in AM ] in source Blood by data Automated count Granulocy 37.0 - % Normal No Apr 26 sandra/100 80.0 informati 2016 6:30 leukocyte on in AM s in source Blood by data Automated count Hematocri 37.0 - % Normal No Apr 26 t [Volume 47.0 informati 2016 6:30 on in AM Fraction] source of Blood data Hemoglobi 12.2 - g/dL Normal No Apr 26 n 16.2 informati 2017 6:30 [Mass/vol on in AM ume] in source Blood data Lymphocyt 0.7 - 4.5 K/mm3 Normal No Apr 26 es informati 2017 6:30 [#/volume on in AM ] in source Unspecifi data ed specimen by Automated count Lymphocyt 10 - 50.0 % Normal No Apr 26 es informati 2016 6:30 [#/volume on in AM ] in source Unspecifi data ed specimen by Automated count Erythrocy 27 - 31.2 pg High No Apr 26 te mean informati 2017 6:30 corpuscul on in AM ar source hemoglobi data n [Entitic mass] Erythrocy 31.8 - g/dl Normal No Apr 26 te mean 35.4 informati 2017 6:30 corpuscul on in AM ar source hemoglobi data n concentra tion [Mass/vol ume] by Automated count Erythrocy 82.2 - fl Normal No Apr 26 te mean 97.8 informati 2017 6:30 corpuscul on in AM ar volume source [Entitic data volume] by Automated count Monocytes 0.1 - 1.0 K/mm3 Normal No Apr 26 informati 2017 6:30 [#/volume on in AM ] in source Blood by data Automated count Monocytes 1.7 - 9.3 % Normal No Apr 26 /100 informati 2017 6:30 leukocyte on in AM s in source Blood by data Automated count Platelet 7.4 - fl Normal No Apr 26 mean 10.4 informati 2017 6:30 volume on in AM [Entitic source volume] data in Blood by Automated count Platelets 142 - 424 K/mm3 Normal No Apr 26 informati 2017 6:30 [#/volume on in AM ] in source Blood data Erythrocy 4.2 - 5.4 M/mm3 Normal No Apr 26 sandra informati 2017 6:30 [#/volume on in AM ] in source Amniotic data fluid Erythrocy 11.5 - % Normal No Apr 26 te 17.5 informati 2017 6:30 distribut on in AM ion width source [Entitic data volume] by Automated count Leukocyte 4.8 - K/MM3 Normal No Apr 26 s 10.8 informati 2017 6:30 [#/volume on in AM ] in source Blood data
--- OUTSIDE RECORDS SUMMARY | 2017-08-15 04:32 | External Medical Summary Rpt ---
Demographics Preferred Language Portuguese Marital Status Unknown Faith Affiliation Unknown Race Unknown Ethnic Group Unknown Author Author NAYA Address Unknown Phone Immunization No patient found.
--- OUTSIDE RECORDS SUMMARY | 2017-08-15 04:32 | External Medical Summary Rpt ---
Demographics Preferred Language Telugu Marital Status Unknown Rastafari Affiliation Unknown Race Unknown Ethnic Group Unknown Author Author NAYA Address Unknown Phone Immunization No patient found.
--- OUTSIDE RECORDS SUMMARY | 2017-08-15 05:14 | External Medical Summary Rpt ---
Author Author , NAYA Organization NAYA Address Unknown Phone [email or web address] Care Team Providers Care Travel Pta Name Role Phone ESCALANTE CAMERON, ESCALANTE Unavailable Unavailable CAMERON ALLRAN JR RUDY, ALLRAN Unavailable Unavailable JR RUDY BEINEKE, BEINEKE Unavailable Unavailable BESSON, BESSON Unavailable Unavailable BESSON RAMBO, BESSON Unavailable Unavailable RAMBO AWAD, AWAD Unavailable Unavailable AWAD ALL, AWAD ALL Unavailable Unavailable [facility] Unavailable Unavailable SERVICE, [facility] GAN VAZQUEZ, GAN Unavailable Unavailable [...] [facility] Unavailable Unavailable HOSPITAL P, [facility], Unavailable Unavailable [facility] MCKEON, MCKEON Unavailable Unavailable EMERSON LEXII, Unavailable Unavailable EMERSON LEXII [facility] Unavailable Unavailable IMAGING [facility], [facility] [...] LETI VASILE RIZWANA, VASILE Unavailable Unavailable RIZWANA [facility] Unavailable Unavailable HOSPITALS, [facility] WALKER FOR, WALKER Unavailable Unavailable FOR Purpose Continuity of Care Document - 01-28-2016 through 2016 Problems Code Diagnosis DOS Provider Status R928 OTH ABNORM 06-14-2017 [facility] INCONCLUSIV INC E FIND ON DX IMAG BREAST Z1231 ENCOUNTER 06-14-2017 [facility] SCREEN[facility] MAMMO MALIG IMAGING ASS NEOPLASM BREAST I10 ESSENTIAL 06-06-2017 [facility] PRIMARY PHYSICIANS HYPERTENSIO GROUP N G459 TRANSIENT 04-26-2017 [facility] CEREBRAL PHYSICIANS, ISCHEMIC PLLC ATTACK UNSPECIFIED R062 WHEEZING 04-26-2017 [facility] R200 ANESTHESIA 04-26-2017 [facility] SKIN MEDICAL IMAGING ASS R202 PARESTHESIA 04-26-2017 [facility] SKIN MEDICAL IMAGING ASS E785 HYPERLIPIDE 12-06-2016 [facility] JOAQUIN PHYSICIANS UNSPECIFIED GROUP 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 GROUP UNSPECIFIED K5731 DIVERTICULO 10-02-2016 [facility] SIS LG PHYSICIANS INTEST W/O GROUP PERF/ABSC W/BLEED 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 K5730 DIVERTICULO 09-12-2016 [facility] SIS LG PHYSICIANS INTEST W/O GROUP PERF/ABSC W/O BLEED R1030 LOWER 09-12-2016 [facility] ABDOMINAL PHYSICIANS PAIN GROUP UNSPECIFIED Z1211 ENCOUNTER 09-12-2016 [facility] SCREENING ANESTH OF MALIGNANT THE BLUE NEOPLASM OF COLON Z43345 ENCOUNTER 08-29-2016 [facility], 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 [facility] 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 RTN W/O ABNORMAL FIND R748 ABNORMAL 08-28-2016 [facility] LEVELS OF PHYSICIANS OTHER SERUM GROUP ENZYMES [...] SITE NOT SPECIFIED R1031 RIGHT LOWER 08-07-2016 [facility] Z8673 PERSONAL HX 03-13-2016 [facility] CEREB [facility] INFARCT NO RESID DEFICIT R079 CHEST PAIN 02-25-2016 [place] UNSPECIFIED [facility] P R209 UNSPECIFIED 2016 [facility] S OF SKIN SENSATION I378 OTHER 02-03-2016 [place] [facility] 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 G8191 HEMIPLEGIA 02-02-2016 [facility] U[facility] SERV AFFECTING FOUNDATION RIGHT DOMINANT SIDE 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, UNS [facility]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/STEN UNS CEREB ART L25324 CEREBRAL 02-02-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 UNS SERV OCCL/STEN FOUNDATION LT CEREBELLAR ART R0789 OTHER CHEST 02-02-2016 [facility] PAIN SERV [facility] R0989 OTH SPEC SX 02-01-2016 [facility] & SIGNS PHYSICIANS INVLV THE GROUP CIRC & RESP SYS I2510 ASHD [place] 01-31-2016 [facility]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 I2699 OTH 01-31-2016 [facility] PULMONARY PHYSICIANS EMBOLISM GROUP W/O ACUTE COR PULMONALE I361 NONRHEUMATI 01-31-2016 [facility] TRICUSPID SERV VALVE FOUNDATION INSUFFICIEN CY I371 NONRHEUMATI 01-31-2016 [facility] PULMONARY SERV VALVE FOUNDATION INSUFFICIEN CY R0600 DYSPNEA 01-31-2016 [facility] UNSPECIFIED [facility] ASS S93598 PERSONAL 01-31-2016 [facility] HISTORY OF MEDICAL PULMONARY IMAGING ASS EMBOLISM C76352 PAIN IN 01-28-2016 [facility] RIGHT MEDICAL SHOULDER IMAGING ASS V57767 PAIN IN 01-28-2016 [facility] RIGHT ARM PHYSICIANS, [facility] [id number] ADVERSE 01-28-2016 [facility] P NTS INITIAL ENCOUNTER Medications Na [...] Procedure DOS Code Location Performer Comment SCREENING 76808 [facility] JEAN 7 [facility] MAMMOGRAP INC INC HY BI 2-VIEW BREAST INC CAD SCREENING G0202 [place] [address] MEDICAL MAMMOGRAP IMAGING HY MARINA ASS INCL CAD WHEN PERFORMD ECG 92088 M[facility] VICENTE ROUTINE 7 [facility] W/LEAST P 12 LDS I&[place] [address] MIARNDA MIR[facility]DA HEAD/BRAI 7 [facility] N W/O INC INC CONTRAST MATERIAL ECG 03231 [facility] JEAN ROUTINE 7 [facility] ECG INC INC W/LEAST 12 LDS TRCG ONLY W/O I&R COMPREHEN 72325 [facility]DA M[facility]DA SIVE 7 [facility] METABOLIC INC INC PANEL CREATINE 40866 M[facility]DA MIRANDA KINASE MB 7 [facility] [place] [address] M[facility]DA M[facility]DA CERVICAL 7 [facility] SPINE W/O INC INC CONTRAST MATERIAL DUPLEX 46176 [facility] JEAN SCAN 7 [facility] EXTRACRAN INC INC IAL ART COMPL BI STUDY URNLS DIP 18065 [facility] JEAN [facility] STICK/TAB INC INC [place] [address] MIRANDA [facility]DA TROPONIN 7 [facility] QUANTITAT INC INC ANNA RADIOLOGI 13648 [facility] JEAN C EXAM 7 [facility] CHEST 2 INC INC VIEWS FRONTAL&L ATERAL BLOOD 04590 [facility] JEAN COUNT 7 [facility] COMPLETE INC INC AUTO&AUTO DIFRNTL WBC CREATINE 51090 [facility] JEAN KINASE 7 [facility] TOTAL INC INC LIPID 33867 [facility] JEAN PANEL 7 [place] [address] MIR[facility]DA JEAN FREE 7 [facility] THYROXINE INC INC GENERAL 68570 [facility] JEAN [facility]ALTH 7 [facility] PANEL INC INC DIAGNOSTI G0206 [facility] C 7 MEDICAL MAMMOGRAP IMAGING HY INCL ASS CAD WHEN PERF; UNI DIAGNOSTI 54784 [facility] C 7 MEDICAL MAMMOGRAP IMAGING HY ASS COMPUTER- AIDED DETCJ UNI US BREAST 19326 [facility] UNI REAL 7 MEDICAL TIME IMAGING WITH ASS IMAGE LIMITED US BREAST 55641 [facility] JEAN UNI REAL 7 [facility] TIME INC INC WITH IMAGE COMPLETE COLONOSCO 37384 [facility] EATONON PY 6 [facility] W/BIOPSY INC INC SINGLE/MU LTIPLE COLSC FLX 71887 [facility] JOSS JR W/RMVL 6 PHYSICIAN RUDY OF TUMOR S GROUP POLYP LESION SNARE TQ ANES 16210 [facility] LOWER 6 ANESTH RIZWANA INTESTINE OF THE [place]UE [place] [address] [facility], GILLIS SURG 6 [facility] PATHOLOGY GROSS&[place] [address] M[facility] JEAN INFUSION 6 [facility] THERAPY/P INC INC ROPHYLAXI S /DX 1ST TO 1 [place] [address] [facility] JEAN INFUSION 6 [facility] THERAPY INC INC PROPHYLAX IS/DX EA HOUR CYTP C/V 86722 [facility], PICKLESIM AUTO THIN 6 [facility] ER JR PATRICK LYR PREPJ SCR MNL RESCR PHYS LIPID 59001 [facility] JEAN PANEL 6 [facility] INC INC HEPATIC 67587 [facility] JEAN FUNCTION 6 [place] [address] M[facility] JEAN ABDOMINAL 6 [facility] REAL INC INC TIME W/IMAGE LIMITED PROTHROMB 10102 [facility] JEAN IN TIME 6 [facility] INC INC COLLECTIO 65431 [facility] JEAN N VENOUS 6 [facility] BLOOD INC INC VENIPUNCT URE HEPATITIS 39044 [facility]AN A 6 [facility] ANTIBODY INC INC HAAB HEPATITIS 45438 M[facility] JEAN B CORE 6 [facility] ANTIBODY INC INC HBCAB TOTAL HEPATITIS 01439 [facility] JEAN B SURF 6 [facility] [address] M[facility] JEAN HEPATITIS 6 [facility] B INC INC SURFACE ANTIGEN HEPATITIS 40660 [facility] JEAN C 6 [facility] [place] [address] M[facility]DA JENA AMYLASE 6 [facility] INC INC COLLECTIO 34938 M[facility] JEAN N VENOUS 6 [facility] BLOOD INC INC VENIPUNCT URE COMPREHEN 08822 [facility] JEAN SIVE 6 [facility] [place] [address] MIR[facility]DA JEAN ABDOMEN & 6 [facility] PELVIS INC [place] W/[place] [address] [facility] JEAN LIPASE 6 [facility] INC INC BLOOD 85778 [facility] JEAN COUNT 6 [facility] COMPLETE INC INC AUTO&AUTO DIFRNTL WBC URNLS DIP 44707 [facility] JEAN 6 [facility] STICK/TAB INC INC LET REAGENT AUTO MICROSCOP Y US BREAST 23676 [facility] ALL UNI REAL 6 MEDICAL TIME IMAGING WITH ASS IMAGE LIMITED US BREAST 23811 MIRANDA JEAN UNI REAL 6 [facility] TIME INC INC WITH IMAGE COMPLETE DIAGNOSTI G0206 [facility] ALL C 6 MEDICAL MAMMOGRAP IMAGING HY INCL ASS CAD WHEN PERF; UNI COMPUTER- 64593 MIRANDA EATONON AIDED 6 [facility] DETECTION INC INC SCREENING MAMMOGRAP HY SCREENING G0202 MIR[facility]DA JEAN 6 [facility] MAMMOGRAP INC INC HY MARINA INCL CAD WHEN PERFORMD CV STRS 49323 MIRANDA ZHANG TST 6 [facility] RX CONT P ECG I&R ONLY CV STRS 92377 MIR[facility]DA ZHANG TST 6 [facility] RX CONT P ECG W/O I&R CV STRS 72619 [facility] JEAN TST 6 [facility] XERS&/OR INC INC RX CONT ECG TRCG ONLY COMPREHEN 83869 [facility] JEAN SIVE 6 [facility] METABOLIC INC INC PANEL CREATINE 32272 MIRANDA JEAN KINASE MB 6 [facility] FRACTION INC INC ONLY ECG 43259 M[facility]ANDA HYATT JR ROUTINE 6 [facility] W/LEAST P 12 LDS I&R ONLY THROMBOPL 62915 [facility] JEAN ASTIN 6 [facility] TIME INC INC PARTIAL PL[place] [address] MIRANDA JEAN TROPONIN 6 [facility] QUANTITAT INC INC ANNA BLOOD 21110 M[facility]DA JEAN COUNT 6 [facility] COMPLETE INC INC AUTO&AUTO DIFRNTL WBC CREATINE 36102 M[facility]DA JEAN KINASE 6 [facility] TOTAL INC INC PROTHROMB 17448 MIRANDA JEAN IN TIME 6 [facility] INC INC ECG 99227 [facility] JEAN ROUTINE 6 [facility] ECG INC INC W/LEAST 12 LDS TRCG ONLY W/O I&[place] [address] MERARY SANCHEZ HEAD/BRAI 6 MEDICAL JAMIN N W/O IMAGING CONTRAST ASS MATERIAL ECHO 28459 [facility] R-T 6 MEDICAL 2D SERV W/WOM-MOD FOUNDATIO E COMPL N SPEC&COLR D SBSQ 53561 [facility] 6 MEDICAL CARE/DAY SERV 25 FOUNDATIO MINUTES N CRITICAL 12714 [facility] 6 PHYSICIAN MAT ILL/INJUR S, [facility] ED PATIENT INIT 30-74 MIN AMB A0427 [facility] SERVICE 6 AMBULANCE AMBULANCE ALS SERVICE SERVICE [place]ENC[place] [address] MIRANDA MIRANDA HEAD/BRAI 6 [facility] N W/O INC INC CONTRAST MATERIAL INITIAL 56048 [facility] 6 MEDICAL CARE/DAY SERV 30 FOUNDATIO MINUTES N THER 36373 MIRANDA JEAN PROPH/DX 6 [facility] NJX IV INC INC PUSH SINGLE/1S T SBST/DRUG ECG 44883 MIR[facility]DA JEAN ROUTINE 6 [facility] ECG INC INC W/LEAST 12 LDS TRCG ONLY W/O I&R GROUND A0425 [facility] MILEAGE 6 AMBULANCE AMBULANCE PER SERVICE SERVICE STATUTE MILE ECG 39597 LEONEL RAY LARA ROUTINE 6 MEDICAL ECG SERV W/LEAST FOUNDATIO 12 LDS N I&R ONLY RADIOLOGI 55230 [facility]DA JEAN C 6 [facility] EXAMINATI INC INC ON CHEST SINGLE VIEW FRONTAL RIGHT 34510 [facility] 6 PHYSICIAN MAT CATH O2 S GROUP SATURATIO N & [facility] 40781 [facility] AIDE DISCHARGE 6 PHYSICIAN SHORTY DAY S GROUP MANAGEMEN T 30 MIN/< INITIAL 47243 [facility] 6 PHYSICIAN MAT CARE/DAY S GROUP 70 MINUTES SBSQ [address] 15 MINUTES PULMONARY 31149 [facility] DANIEL 6 MEDICAL JAMIN VENTILATI IMAGING ON & ASS PERFUSION IMAGING ECHO 19891 LEONEL BHAGAT MENA TTHRC R-T 6 MEDICAL 2D SERV W/WOM-MOD FOUNDATIO E COMPL N SPEC&COLR D DUP-SCAN 67667 [facility] CHEROKEEDanilo JARVISDANIEL XTR VEINS 6 MEDICAL JAMIN COMPLETE IMAGING ASS BILATERAL STUDY ECG 18844 MIRANDA HYATT JR ROUTINE [address] [facility] W/LEAST P 12 LDS I&R ONLY INITIAL [address] 50 MINUTES RADIOLOGI 28871 [facility] ALL C EXAM 6 MEDICAL CHEST 2 IMAGING VIEWS ASS FRONTAL&L ATERAL ECG 00785 MIRANDA HYATT JR ROUTINE [address] [facility] W/LEAST P 12 LDS I&R ONLY Encounters Encounter Start End Date Code Location Performer Type Date [facility] MIRANDA Munoz 7 [facility] OUTPATIEN [facility] T OFFICE 74260 [facility] 7 PHYSICIAN T VISIT S GROUP 15 MINUTES EMERGENCY 21421 DIALLO MCKEON DEPT 7 7 PHYSICIAN VISIT S, PLLC HIGH SEVERITY& THREAT FUNJ EMERGENCY 40079 MIRANDA 7 7 [facility] DEPARTMEN INC T VISIT MODERATE SEVERITY HOSPITAL MIRANDA Munoz 7 [facility] OUTPATIEN [facility] T OFFICE 09299 [facility] OUTPATIEN 7 7 PHYSICIAN T VISIT S GROUP 25 MINUTES HOSPITAL MIRANDA Munoz 7 [facility] OUTPATIEN INC T HOSPITAL MIRANDA - 7 7 [facility] OUTPATIEN INC T OFFICE 66406 [facility] JOSS GARCIA OUTPATIEN 6 6 PHYSICIAN RUYD T VISIT S GROUP 10 MINUTES HOSPITAL MIRANDA - 6 6 [facility] OUTPATIEN INC T INITIAL 30821 [facility] GAN PREVENTIV 6 6 PHYSICIAN VAZQUEZ E S GROUP MEDICINE NEW PATIENT 40-64YRS OFFICE 18961 [facility] FRYMAN OUTPATIEN 6 6 PHYSICIAN EUG T VISIT S GROUP 15 MINUTES HOSPITAL MIRANDA - 6 6 [facility] OUTPATIEN [facility] MIRANDA - 6 6 [facility] OUTPATIEN INC T EMERGENCY 46410 DIALLO FOX 6 6 PHYSICIAN U LETI DEPARTMEN S, [facility] T VISIT HIGH/URGE NT SEVERITY HOSPITAL MIRANDA - 6 6 [facility] OUTPATIEN [facility] T EMERGENCY 29955 MIRANDA 6 6 [facility] DEPARTMEN [facility] T VISIT MODERATE SEVERITY OFFICE 40403 [facility] AIDE OUTPATIEN 6 6 PHYSICIAN SHORTY T VISIT S GROUP 15 MINUTES HOSPITAL MIRANDA - 6 6 [facility] OUTPATIEN INC T OFFICE 43769 [facility] FRYMAN OUTPATIEN 6 6 PHYSICIAN EUG T VISIT S GROUP 15 MINUTES HOSPITAL MIRANDA - 6 6 [facility] OUTPATIEN INC T OFFICE 66037 [facility] AIDE OUTPATIEN 6 6 PHYSICIAN SHORTY T VISIT S GROUP 10 MINUTES OFFICE 45160 LEONEL QUIROGA OUTPATIEN 6 6 MEDICAL T VISIT SERV 25 FOUNDATIO MINUTES HOSPITAL MIRANDA - 6 6 [facility] OUTPATIEN INC T OFFICE 84986 [facility] AIDE OUTPATIEN 6 6 PHYSICIAN SHORTY T VISIT S GROUP 15 MINUTES EMERGENCY 05893 DIALLO NOBLE DEPT 6 6 PHYSICIAN SHORTY VISIT S, PLLC HIGH SEVERITY& THREAT FUNCJ EMERGENCY 88603 6 6 [facility] DEPARTMEN E T VISIT HOSPITALS HIGH/URGE NT SEVERITY EMERGENCY 95241 LEONEL NORMAN 6 6 MEDICAL [place] DEPARTMEN SERV T VISIT FOUNDATIO MODERATE N SEVERITY HOSPITAL [facility] - 6 6 [facility] OUTPATIEN E T [facility] UNIVERSIT - 6 6 Y INPATIENT HOSPITAL EMERGENCY 46425 MIRANDA 6 6 [facility] DEPARTMEN INC T VISIT HIGH/URGE NT SEVERITY EMERGENCY 36793 LEONEL ESCALANTE DEPT 6 6 MEDICAL CAMERON VISIT SERV HIGH FOUNDATIO SEVERITY& N THREAT FUNCJ EMERGENCY 27535 DIALLO EMANUEL [facility] DEPT 6 6 PHYSICIAN VISIT S, PLLC HIGH SEVERITY& THREAT FUNCJ EMERGENCY 88256 DIALLO NOYOLA 6 6 PHYSICIAN FOR DEPARTMEN S, PLLC T VISIT HIGH/URGE NT SEVERITY
--- OUTSIDE RECORDS SUMMARY | 2017-08-15 05:14 | External Medical Summary Rpt ---
Author Author , NAYA Organization NAYA Address Unknown Phone [email or web address] Care Team Providers Care Machine Taper Name Role Phone ESCALANTE CAMERON, ESCALANTE Unavailable Unavailable CAMERON ALLRAN JR RUDY, ALLRAN Unavailable Unavailable JR RUDY BEINEKE, BEINEKE Unavailable Unavailable BESSON, BESSON Unavailable Unavailable BESSON RAMBO, BESSON Unavailable Unavailable RAMBO AWAD, AWAD Unavailable Unavailable AWAD ALL, AWAD ALL Unavailable Unavailable [facility] Unavailable Unavailable SERVICE, [facility] GAN VAZQUEZ, GAN Unavailable Unavailable [facility] Unavailable Unavailable [facility] DANIEL JAMIN, Unavailable Unavailable DANIEL JAMIN JACKSON MAT, JACKSON Unavailable Unavailable MAT FRYMAN, FRYMAN Unavailable Unavailable FRYMAN EUG, FRYMAN Unavailable Unavailable EUG AIDE SHORTY, AIDE Unavailable Unavailable SHORTY [facility] Unavailable Unavailable INC, [facility] Unavailable Unavailable HOSPITAL P, [facility] P [facility], Unavailable Unavailable [facility] MCKEON, MCKEON Unavailable Unavailable EMERSON LEXII, Unavailable Unavailable EMERSON LEXII [facility] Unavailable Unavailable IMAGING [facility], [facility]AY [facility], R[facility] [...] LETI VASILE RIZWANA, VASILE Unavailable Unavailable RIZWANA [facility] Unavailable Unavailable HOSPITALS, [facility] WALKER FOR, WALKER Unavailable Unavailable FOR Purpose Continuity of Care Document - 01-28-2016 through 2016 Problems Code Diagnosis DOS Provider Status R928 OTH ABNORM 06-14-2017 [facility] INCONCLUSIV INC E FIND ON DX IMAG BREAST Z1231 ENCOUNTER 06-14-2017 [place] [facility] MALIG [facility] ASS NEOPLASM BREAST I10 ESSENTIAL 06-06-2017 [facility] HYPERTENSIO GROUP N 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 TRANSIENT 04-26-2017 [facility] CERE[facility]AL [facility], ISCHEMIC PLLC ATTACK UNSPECIFIED R062 WHEEZING 04-26-2017 [facility] R200 ANESTHESIA 04-26-2017 [facility] R202 PARESTHESIA 04-26-2017 [facility]ICAL IMAG[facility] ASS E785 HYPERLIPIDE 12-06-2016 [facility] UNSPECIFIED GROUP 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 K5731 DIVERTICULO 10-02-2016 [facility] SIS LG PHYSICIANS INTEST W/O GROUP PERF/ABSC W/BLEED 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 K5730 DIVERTICULO 09-12-2016 [facility] S[facility] PHYSICIANS INTEST W/O GROUP PERF/ABSC W/O BLEED R1030 LOWER 09-12-2016 [facility] ABDOMINAL PHYSICIANS PAIN GROUP UNSPECIFIED Z1211 ENCOUNTER 09-12-2016 [facility] ANEST[facility] 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[facility] BLUE NEOPLASM OF COLON F06313 ENCOUNTER 08-29-2016 [facility], 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 LLC GENERAL RTN W/O ABNORMAL FIND R748 ABNORMAL 08-28-2016 [facility] LEVELS OF PHYSICIANS OTHER SERUM GROUP ENZYMES [...] SITE NOT SPECIFIED R1031 RIGHT LOWER 08-07-2016 [place] [facility] Z8673 PERSONAL HX 03-13-2016 [facility] TIA & SERV CEREB FOUNDATION INFARCT NO RESID DEFICIT R079 CHEST PAIN 02-25-2016 [facility]PECIF[facility] P R209 UNSPECIFIED 2016 [facility] S OF SKIN SENSATION I378 OTHER 02-03-2016 [facility] 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 G8191 HEMIPLEGIA 02-02-2016 [place] [facility] UNS SERV AFFECTING FOUNDATION RIGHT DOMINANT SIDE 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, UNS [facility] OCCL/STEN UNS CEREB ART S84758 CEREBRAL 02-02-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 UNS SERV OCCL/STEN FOUNDATION LT CEREBELLAR ART R0789 OTHER CHEST 02-02-2016 [place] [facility] PAIN SERV [facility] R0989 OTH SPEC SX 02-01-2016 [facility] SIGNS PHYSICIANS INVLV THE GROUP CIRC & RESP SYS I2510 ASHD [facility] [place] 01-31-2016 [facility]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 I2699 OTH 01-31-2016 [facility] PULMONARY PHYSICIANS EMBOLISM GROUP W/O ACUTE COR PULMONALE I361 NONRHEUMATI 01-31-2016 [facility] C TRICUSPID SERV VALVE FOUNDATION INSUFFICIEN CY I371 NONRHEUMATI 01-31-2016 [facility] PULMONARY SERV VALVE FOUNDATION INSUFFICIEN CY R0600 DYSPNEA 01-31-2016 [place] [facility]PEC[facility] P02398 PERSONAL 01-31-2016 [place] HISTORY OF MEDICAL PULMONARY IMAGING ASS EMBOLISM J11050 PAIN IN 01-28-2016 [place] RIGHT MEDICAL SHOULDER IMAGING ASS T09071 PAIN IN 01-28-2016 [facility] RIGHT ARM PHYSICIANS, [facility] [id number] ADVERSE 01-28-2016 [facility] P NTS INITIAL ENCOUNTER Medications Na ND [...] Procedure DOS Code Location Performer Comment SCREENING 00435 [facility] JEAN [facility] MAMMOGRAP INC INC HY BI 2-VIEW BREAST INC CAD SCREENING G0202 [place] [address] MEDICAL MAMMOGRAP IMAGING HY MARINA ASS INCL CAD WHEN PERFORMD ECG 81733 M[facility]ANDA VICENTE ROUTINE 7 [facility] W/LEAST P 12 LDS I&[place] [address] MIRANDA MIRANDA HEAD/BRAI 7 [facility] N W/O INC INC CONTRAST MATERIAL ECG 97971 [facility] JEAN ROUTINE 7 [facility] ECG INC INC W/LEAST 12 LDS TRCG ONLY W/O I&R COMPREHEN 55844 MIRANDA [facility]DA SIVE 7 [facility] METABOLIC INC INC PANEL CREATINE 20819 MIRANDA MIRANDA KINASE MB 7 [facility] [place] [address] MIRANDA M[facility]ANDA CERVICAL 7 [facility] SPINE W/O INC INC CONTRAST MATERIAL DUPLEX 75584 M[facility]DA JEAN SCAN 7 [facility] EXTRACRAN INC INC IAL ART COMPL BI STUDY URNLS DIP 98513 [facility] JEAN [facility] STICK/TAB INC INC [place] [address] MIRANDA M[facility]DA TROPONIN 7 [facility] QUANTITAT INC INC ANNA RADIOLOGI 51776 [facility]DA JEAN C EXAM 7 [facility] CHEST 2 INC INC VIEWS FRONTAL&L ATERAL BLOOD 89676 M[facility]DA JEAN COUNT 7 [facility] COMPLETE INC INC AUTO&AUTO DIFRNTL WBC CREATINE 20301 M[facility]DA JEAN KINASE 7 [facility] TOTAL INC INC LIPID 37698 MIRANDA JEAN PANEL 7 [place] [address] M[facility]ANDA JEAN FREE 7 [facility] THYROXINE INC INC GENERAL 46068 M[facility]DA JEAN HEALTH 7 [facility] PANEL INC INC DIAGNOSTI G0206 [place] AW[facility] C 7 MEDICAL MAMMOGRAP IMAGING HY INCL ASS CAD WHEN PERF; UNI DIAGNOSTI 33443 [facility] C 7 MEDICAL MAMMOGRAP IMAGING HY ASS COMPUTER- AIDED DETCJ UNI US BREAST 05551 [facility] UNI REAL 7 MEDICAL TIME IMAGING WITH ASS IMAGE LIMITED US BREAST 06500 MIR[facility]DA JEAN UNI REAL 7 [facility] TIME INC INC WITH IMAGE COMPLETE COLONOSCO 85782 M[facility]DA EATONON PY 6 [facility] W/BIOPSY INC INC SINGLE/MU LTIPLE COLSC FLX 12681 [facility] JOSS JR W/RMVL 6 PHYSICIAN RUDY OF TUMOR S GROUP POLYP LESION SNARE TQ ANES 20582 [facility] LOWER 6 ANESTH [place] INTESTINE OF THE [place]UE [place] [address] [facility], GILLIS SURG 6 [facility] PATHOLOGY GROSS&[place] [address] M[facility]DA JEAN INFUSION 6 [facility] THERAPY/P INC INC ROPHYLAXI S /DX 1ST TO 1 [place] [address] M[facility] JEAN INFUSION 6 [facility] THERAPY INC INC PROPHYLAX IS/DX EA HOUR CYTP C/V 98941 [facility], PICKLESIM AUTO THIN 6 [facility] ER JR PATRICK LYR PREPJ SCR MNL RESCR PHYS LIPID 08007 M[facility]DA JEAN PANEL 6 [facility] INC INC HEPATIC 30623 M[facility]DA JEAN FUNCTION 6 [facility] [place] [address] M[facility]ANDA JEAN ABDOMINAL 6 [facility] REAL INC INC TIME W/IMAGE LIMITED PROTHROMB 16604 [facility]DA JEAN IN TIME 6 [facility] INC INC COLLECTIO 84279 M[facility]DA JEAN N VENOUS 6 [facility] BLOOD INC INC VENIPUNCT URE HEPATITIS 61933 [facility] JEAN A 6 [facility] ANTIBODY INC INC HAAB HEPATITIS 22636 M[facility]DA JEAN B CORE 6 [facility] ANTIBODY INC INC HBCAB TOTAL HEPATITIS 68724 M[facility]DA JEAN B SURF 6 [facility] [address] MIRANDA JEAN HEPATITIS 6 [facility] B INC INC SURFACE ANTIGEN HEPATITIS 81113 M[facility]DA JEAN C 6 [facility] [place] [address] MIRANDA JEAN AMYLASE 6 [facility] INC INC COLLECTIO 30198 MIRANDA JEAN N VENOUS 6 [facility] BLOOD INC INC VENIPUNCT URE COMPREHEN 49592 M[facility]DA JEAN SIVE 6 [facility] [place] [address] MIRANDA JEAN ABDOMEN & 6 [facility] PELVIS INC INC W/[place] [address] MIRANDA JEAN LIPASE 6 [facility] INC INC BLOOD 94542 MIR[facility]DA JEAN COUNT 6 [facility] COMPLETE INC INC AUTO&AUTO DIFRNTL WBC URNLS DIP 05168 M[facility]DA JEAN 6 [facility] STICK/TAB INC INC LET REAGENT AUTO MICROSCOP Y US BREAST 68459 [facility] ALL UNI REAL 6 MEDICAL TIME IMAGING WITH ASS IMAGE LIMITED US BREAST 89045 MIRANDA JEAN UNI REAL 6 [facility] TIME INC INC WITH IMAGE COMPLETE DIAGNOSTI G0206 [place] AW[place] ALL C 6 MEDICAL MAMMOGRAP IMAGING HY INCL ASS CAD WHEN PERF; UNI COMPUTER- 55552 MIRANDA EATONON AIDED 6 [facility]OS[facility] DETECTION INC INC SCREENING MAMMOGRAP HY SCREENING G0202 MIRANDA JEAN 6 [facility]OSP MAMMOGRAP INC INC HY MARINA INCL CAD WHEN PERFORMD CV STRS 23191 MIRANDA ZHANG TST 6 ED [facility]&/OR [facility] RX CONT P ECG I&R ONLY CV STRS 70729 MIRANDA ZHANG TST 6 ED [facility]&/OR [facility] RX CONT P ECG W/O I&R CV STRS 65481 MIRANDA JEAN TST 6 [facility] XERS&/OR INC INC RX CONT ECG TRCG ONLY COMPREHEN 19192 MIRANDA JEAN SIVE 6 [facility] METABOLIC INC INC PANEL CREATINE 17829 MIRANDA JEAN KINASE MB 6 [facility]OSP FRACTION INC INC ONLY ECG 65703 MIRANDA HYATT JR ROUTINE 6 [facility] W/LEAST P 12 LDS I&R ONLY THROMBOPL 18572 MIRANDA JEAN ASTIN 6 [facility] TIME INC INC PARTIAL PLASMA/[place] [address] MIRANDA JEAN TROPONIN 6 [facility] QUANTITAT INC INC ANNA BLOOD 86258 M[facility]DA JEAN COUNT 6 [facility] COMPLETE INC INC AUTO&AUTO DIFRNTL WBC CREATINE 05384 M[facility]DA JEAN KINASE 6 [facility] TOTAL INC INC PROTHROMB 92210 MIRANDA JEAN IN TIME 6 [facility] INC INC ECG 42958 M[facility]DA JEAN ROUTINE 6 [facility] ECG INC INC W/LEAST 12 LDS TRCG ONLY W/O I&[place] [address] MERARY SANCHEZ HEAD/BRAI 6 MEDICAL JAMIN N W/O IMAGING CONTRAST ASS MATERIAL ECHO 17231 [facility] 6 MEDICAL 2D SERV W/WOM-MOD FOUNDATIO E COMPL N SPEC&COLR D SBSQ 82970 [facility] 6 MEDICAL CARE/DAY SERV 25 FOUNDATIO MINUTES N CRITICAL 78217 [facility] 6 PHYSICIAN MAT ILL/INJUR S, [facility] ED PATIENT INIT 30-74 MIN AMB A0427 [facility] SERVICE 6 AMBULANCE AMBULANCE ALS SERVICE SERVICE [place] [address] MIRANDA MIRANDA HEAD/BRAI 6 [facility] N W/O INC INC CONTRAST MATERIAL INITIAL 95950 [facility] 6 MEDICAL CARE/DAY SERV 30 FOUNDATIO MINUTES N THER 34736 MIRANDA JEAN PROPH/DX 6 [facility] NJX IV INC INC PUSH SINGLE/1S T SBST/DRUG ECG 95421 MIRANDA JEAN ROUTINE 6 [facility] ECG INC INC W/LEAST 12 LDS TRCG ONLY W/O I&R GROUND A0425 [facility] MILEAGE 6 AMBULANCE AMBULANCE PER SERVICE SERVICE STATUTE MILE ECG 66248 LEONEL RAY LARA ROUTINE 6 MEDICAL ECG SERV W/LEAST FOUNDATIO 12 LDS N I&R ONLY RADIOLOGI 14620 MIRANDA JEAN C 6 [facility] EXAMINATI INC INC ON CHEST SINGLE [place]IEW FRONTAL RIGHT 70548 [facility] 6 PHYSICIAN MAT CATH O2 S GROUP SATURATIO N & [facility] 92483 [facility] AIDE DISCHARGE 6 PHYSICIAN SHORTY DAY S GROUP MANAGEMEN T 30 MIN/< INITIAL 57060 [facility] 6 PHYSICIAN MAT CARE/DAY S GROUP 70 MINUTES SBSQ [address] 15 MINUTES PULMONARY 57351 [facility] D[facility]EL 6 MEDICAL JAMIN VENTILATI IMAGING ON & ASS PERFUSION IMAGING ECHO 95413 LEONEL BHAGAT MENA TTHRC R-T 6 MEDICAL 2D SERV W/WOM-MOD FOUNDATIO E COMPL N SPEC&COLR D DUP-SCAN 02337 [facility] JARVISDANIEL XTR VEINS 6 MEDICAL JAMIN COMPLETE IMAGING ASS BILATERAL STUDY ECG 27345 MIRANDA HYATT JR ROUTINE 6 [facility] W/LEAST P 12 LDS I&R ONLY INITIAL [address] 50 MINUTES RADIOLOGI 99745 [place] AW[facility] ALL C EXAM 6 MEDICAL CHEST 2 IMAGING VIEWS ASS FRONTAL&L ATERAL ECG 43240 MIRANDA HYATT JR ROUTINE 6 [facility] W/LEAST P 12 LDS I&R ONLY Encounters Encounter Start End Date Code Location Performer Type Date [facility] MIRANDA Munoz 7 [facility] OUTPATIEN [facility] 95301 [facility] 7 PHYSICIAN T VISIT S GROUP 15 MINUTES EMERGENCY 08203 DIALLO MCKEON DEPT 7 7 PHYSICIAN VISIT S, PLLC HIGH SEVERITY& THREAT FUNJ EMERGENCY 96186 MIRANDA 7 7 [facility] DEPARTMEN INC T VISIT MODERATE SEVERITY HOSPITAL MIRANDA Munoz 7 [facility]PAT[facility]EN [facility] T OFF[facility] 58547 [facility] OUTPATIEN 7 7 PHYSICIAN T VISIT S GROUP 25 MINUTES HOSPITAL MIRANDA Munoz 7 [facility] OUTPATIEN INC T HOSPITAL MIRANDA - 7 7 [facility] OUTPATIEN INC T OFFICE 10316 [facility] JOSS GARCIA OUTPATIEN 6 6 PHYSICIAN RUDY T VISIT S GROUP 10 MINUTES HOSPITAL MIRANDA - 6 6 [facility] OUTPATIEN INC T INITIAL 56857 [facility] GAN PREVENTIV 6 6 PHYSICIAN VAZQUEZ E S GROUP MEDICINE NEW PATIENT 40-64YRS OFFICE 62502 [facility]MAN OUTPATIEN 6 6 PHYSICIAN EUG T VISIT S GROUP 15 MINUTES HOSPITAL MIRANDA - 6 6 [facility] OUTPATIEN [facility] HOSPITAL MIRANDA - 6 6 [facility] OUTPATIEN INC T EMERGENCY 11912 DI[facility]O FOX 6 6 PHYSICIAN U LETI DEPARTMEN S, [facility] T VISIT HIGH/URGE NT SEVERITY HOSPITAL MIRANDA - 6 6 [facility]EN [facility] T EMERGENCY 84983 MIRANDA 6 6 [facility] DEPARTMEN [facility] T VISIT MODERATE SEVERITY OFFICE 73263 [facility] AIDE OUTPATIEN 6 6 PHYSICIAN SHORTY T VISIT S GROUP 15 MINUTES HOSPITAL MIRANDA - 6 6 [facility] OUTPATIEN INC T OFFICE 81547 [facility] OUTPATIEN 6 6 PHYSICIAN EUG T VISIT S GROUP 15 MINUTES HOSPITAL MIRANDA - 6 6 [facility] OUTPATIEN INC T OFFICE 64261 [facility] AIDE OUTPATIEN 6 6 PHYSICIAN SHORTY T VISIT S GROUP 10 MINUTES OFFICE 53602 LEONEL QUIROGA OUTPATIEN 6 6 MEDICAL T VISIT SERV 25 FOUNDATIO MINUTES HOSPITAL MIRANDA - 6 6 [facility] OUTPATIEN INC T OFFICE 99154 [facility] AIDE OUTPATIEN 6 6 PHYSICIAN SHORTY T VISIT S GROUP 15 MINUTES EMERGENCY 08953 DIALLO NOBLE DEPT 6 6 PHYSICIAN SHORTY VISIT S, PLLC HIGH SEVERITY& THREAT FUNCJ EMERGENCY 00811 6 6 [facility] DEPARTMEN E T VISIT HOSPITALS HIGH/URGE NT SEVERITY EMERGENCY 99652 LEONEL NORMAN 6 6 MEDICAL L[place] DEPARTMEN SERV T VISIT FOUNDATIO MODERATE N SEVERITY HOSPITAL [facility] - 6 6 [facility] OUTPATIEN E T [facility] UNIVERSIT - 6 6 Y INPATIENT HOSPITAL EMERGENCY 40397 MIRANDA 6 6 [facility] DEPARTMEN INC T VISIT HIGH/URGE NT SEVERITY EMERGENCY 61620 LEONEL ESCALANTE DEPT 6 6 MEDICAL CAMERNO VISIT SERV HIGH FOUNDATIO SEVERITY& N THREAT FUNCJ EMERGENCY 00362 [facility] DEPT 6 6 PHYSICIAN VISIT S, PLLC HIGH SEVERITY& THREAT FUNCJ EMERGENCY 25624 DIALLO NOYOLA 6 6 PHYSICIAN FOR DEPARTMEN S, PLLC T VISIT HIGH/URGE NT SEVERITY
--- OUTSIDE RECORDS SUMMARY | 2017-08-15 05:15 | External Medical Summary Rpt ---
Author Author , NAYA Organization NAYA Address Unknown Phone [email or web address] Data Care Team Providers Care Animal Care Assistant Name Role Phone ESCALANTE CAMERON, ESCALANTE Unavailable Unavailable CAMERON ALLRAN JR RUDY, ALLRAN Unavailable Unavailable JR RUDY BEINEKE, BEINEKE Unavailable Unavailable BESSON, BESSON Unavailable Unavailable BESSON RAMBO, BESSON Unavailable Unavailable RAMBO AWAD, AWAD Unavailable Unavailable AWAD ALL, AWAD ALL Unavailable Unavailable [facility] Unavailable Unavailable SERVICE, [facility] GAN VAZQUEZ, GAN Unavailable Unavailable [facility] Unavailable Unavailable [facility] DANIEL JAMIN, Unavailable Unavailable DANIEL JAMIN JACKSON MAT, JACKSON Unavailable Unavailable MAT FRYMAN, FRYMAN Unavailable Unavailable FRYMAN EUG, FRYMAN Unavailable Unavailable EUG AIDE SHORTY, AIDE Unavailable Unavailable SHORTY [facility] Un[facility] Unavailable INC, [facility] Unavailable Unavailable HOSPITAL P, [facility] P [facility], Unavailable Unavailable [facility] MCKEON, MCKEON Unavailable Unavailable [facility], Unavailable Unavailable [facility] Unavailable Unavailable IMAGING [facility], [facility], R[facility] [...] Unavailable Unavailable [facility] Unavailable Unavailable [facility]PITALS, [facility] WALKER FOR, WALKER Unavailable Unavailable FOR Purpose Continuity of Care Document - 01-28-2016 through 2016 Problems Code Diagnosis DOS Provider Status R928 OTH ABNORM 06-14-2017 [facility] INCONCLUSIV INC E FIND ON DX IMAG BREAST Z1231 ENCOUNTER 06-14-2017 [place] [facility]CRE[facility] MALIG IMAGING ASS NEOPLASM BREAST I10 ESSENTIAL 06-06-2017 [facility] PRIMARY PHYSICIANS HYPERTENSIO GROUP N G459 TRANSIENT 04-26-2017 [facility] CEREBRAL PHYSICIANS, ISCHEMIC PLLC ATTACK UNSPECIFIED R062 WHEEZING 04-26-2017 [facility] R200 ANESTHESIA 04-26-2017 [facility] SKIN [facility]ICAL IM[facility] R202 PARESTHESIA 04-26-2017 [facility] SKIN MEDICAL IMAGING ASS E785 HYPERLIPIDE 12-06-2016 [facility] JOAQUIN PHYSICIANS UNSPECIFIED GROUP 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 GROUP UNSPECIFIED K5731 DIVERTICULO 10-02-2016 [facility] SIS LG PHYSICIANS INTEST W/O GROUP PERF/ABSC W/BLEED 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 K5730 DIVERTICULO 09-12-2016 [facility] SIS LG PHYSICIANS INTEST W/O GROUP PERF/ABSC W/O BLEED R1030 LOWER 09-12-2016 [facility] ABDOMINAL PHYSICIANS PAIN GROUP UNSPECIFIED Z1211 ENCOUNTER 09-12-2016 [facility] MALIGNANT [facility] NEOPLASM OF COLON F49996 ENCOUNTER 08-29-2016 [facility], PHARMACOLOGY ASSOCIATE EXAM LLC GENERAL RTN W/O ABNORMAL FIND R748 ABNORMAL 08-28-2016 [facility] LEVELS OF PHYSICIANS OTHER SERUM GROUP [...] SITE NOT SPECIFIED R1031 RIGHT LOWER 08-07-2016 [facility] MEDICAL PAIN IMAGING ASS Z8673 PERSONAL HX 03-13-2016 [place] [facility] TIA & SERV CEREB FOUNDATION INFARCT NO RESID DEFICIT R079 CHEST PAIN 02-25-2016 [facility] P R209 UNSPECIFIED 2016 [facility] S OF SKIN SENSATION I378 OTHER 02-03-2016 [place] [facility] 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 G8191 HEMIPLEGIA 02-02-2016 [place] [facility] UNS SERV AFFECTING FOUNDATION RIGHT DOMINANT SIDE 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, UNS PLLC OCCL/STEN UNS CEREB ART S17486 CEREBRAL 02-02-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 UNS SERV OCCL/STEN FOUNDATION LT CEREBELLAR ART R0789 OTHER CHEST 02-02-2016 [place] [facility] PAIN SERV FOUNDATION R0989 OTH SPEC SX 02-01-2016 [facility] & SIGNS PHYSICIANS INVLV THE GROUP CIRC & RESP SYS I2510 ASHD [place] 01-31-2016 [place] [facility]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 I2699 OTH 01-31-2016 [facility] PULMONARY PHYSICIANS EMBOLISM GROUP W/O ACUTE COR PULMONALE I361 NONRHEUMATI 01-31-2016 [place] [facility] C TRICUSPID SERV VALVE FOUNDATION INSUFFICIEN CY I371 NONRHEUMATI 01-31-2016 [place] [facility] PULMONARY SERV VALVE FOUNDATION INSUFFICIEN CY R0600 DYSPNEA 01-31-2016 [place] UNSPECIFIED MEDICAL IMAGING ASS L31457 PERSONAL 01-31-2016 [place] HISTORY OF MEDICAL PULMONARY IMAGING ASS EMBOLISM Q48573 PAIN IN 01-28-2016 [place] RIGHT MEDICAL SHOULDER IMAGING ASS I49950 PAIN IN 01-28-2016 [facility] RIGHT ARM PHYSICIANS, [facility] [id number] ADVERSE 01-28-2016 [facility] P NTS INITIAL ENCOUNTER Medications [...] DOS Code Location Performer Comment SCREENING G0202 [facility] 7 MEDICAL MAMMOGRAP IMAGING HY MARINA ASS INCL CAD WHEN PERFORMD SCREENING 76694 [facility]DA JEAN 7 [facility] MAMMOGRAP INC INC HY BI 2-VIEW BREAST INC CAD ECG 06972 M[facility]ANDA [facility]DA ROUTINE 7 [facility] ECG INC INC W/LEAST 12 LDS TRCG ONLY W/O I&R DUPLEX 33921 M[facility]ANDA M[facility]DA SCAN 7 [facility] EXTRACRAN [place] [address] MIRANDA JEAN HEAD/BRAI 7 [facility] N W/O INC INC CONTRAST MATERIAL RADIOLOGI 40900 MIRANDATERA JEAN C EXAM 7 [facility] CHEST 2 INC INC VIEWS FRONTAL&L ATERAL CREATINE 72297 MIRANDA MIRANDA KINASE MB 7 [facility] [place] [address] MIRANDA MIRANDA CERVICAL 7 [facility] SPINE W/O INC INC CONTRAST MATERIAL CREATINE 47540 MIRANDATERA JEAN KINASE 7 [facility] TOTAL INC INC COMPREHEN 22150 M[facility]ANDA JEAN SIVE 7 [facility] [address] MIRANDA MIRANDA TROPONIN 7 [facility] QUANTITAT INC INC ANNA BLOOD 29195 MIRANDA MIRANDA COUNT 7 [facility] COMPLETE INC INC AUTO&AUTO DIFRNTL WBC URNLS DIP 22630 M[facility]DA MIRANDA 7 [facility] STICK/TAB INC INC LET REAGENT AUTO MICROSCOP Y ECG 88763 MIRANDA ZHANG ROUTINE 7 [facility] W/LEAST P 12 LDS I&R ONLY LIPID 83580 MIRANDA JEAN PANEL 7 [place] [address] MIRANDA MIRANDA FREE 7 [facility] THYROXINE INC INC GENERAL 42324 MIRANDA JEAN HEALTH 7 [facility] PANEL INC INC DIAGNOSTI G0206 [place] [facility] C 7 MEDICAL MAMMOGRAP IMAGING HY INCL ASS CAD WHEN PERF; UNI US BREAST 85862 MIRANDA JEAN UNI REAL 7 [facility] TIME INC INC WITH IMAGE COMPLETE US BREAST 59097 [place] [facility] UNI REAL 7 MEDICAL TIME IMAGING WITH ASS IMAGE LIMITED DIAGNOSTI 72055 [facility] 7 MEDICAL MAMMOGRAP IMAGING HY ASS COMPUT[place]- [place] [address] [facility], GILLIS SURG 6 LLC [facility] PATHOLOGY GROSS&SHORTY ROSCOPIC EXAM COLONOSCO 46247 [facility]DA JEAN PY 6 [facility] W/BIOPSY INC INC SINGLE/MU LTIPLE COLSC FLX 76117 [facility] ALLRAN JR W/RMVL 6 PHYSICIAN RUDY OF TUMOR S GROUP POLYP LESION SNARE TQ ANES 89793 [facility] 6 ANESTH [place] [facility] [place] [address] MIRANDA JEAN INFUSION 6 [facility] THERAPY/P INC INC ROPHYLAXI S /DX 1ST TO 1 [place] [address] MIRANDA JEAN INFUSION 6 [facility] THERAPY INC INC PROPHYLAX IS/DX EA HOUR CYTP C/V 39927 [facility], PICKLESIM AUTO THIN 6 [facility] ER JR PATRICK LYR PREPJ SCR MNL RESCR PHYS LIPID 44444 MIRANDA JEAN PANEL 6 [place] [address] MIRANDA JEAN ABDOMINAL 6 [facility] REAL INC INC TIME W/IMAGE LIMITED HEPATIC 15929 MIRANDA JEAN FUNCTION 6 [facility] PANEL INC INC COLLECTIO 67552 MIRANDA JEAN N VENOUS 6 [facility] BLOOD INC INC VENIPUNCT URE HEPATITIS 01905 M[facility]DA JEAN A 6 [facility] ANTIBODY INC INC HAAB HEPATITIS 31457 M[facility]DA JEAN C 6 [facility] ANTIBODY INC INC PROTHROMB 32019 MIRANDA JEAN IN TIME 6 [facility] INC INC HEPATITIS 91432 MIRANDA JEAN B CORE 6 [facility] ANTIBODY INC INC HBCAB TOTAL HEPATITIS 81046 MIRANDA JEAN B SURF 6 [facility] [address] MIRANDA JEAN HEPATITIS 6 [facility] B INC INC SURFACE ANTIGEN COMPREHEN 53752 M[facility]DA JEAN SIVE 6 [facility] [place] [address] MIRANDA JEAN ABDOMEN & 6 [facility] PELVIS INC INC W/[place] [address] MIRANDA JEAN LIPASE 6 [facility] INC INC BLOOD 21258 MIRANDA JEAN COUNT 6 [facility] COMPLETE INC INC AUTO&[place] [address] MIRANDA MIRANDA AMYLASE 6 [facility] INC INC COLLECTIO 84001 MIRANDA JEAN N VENOUS 6 [facility] BLOOD INC INC VENIPUNCT URE URNLS DIP 67456 MIRANDA JEAN 6 [facility] STICK/TAB INC INC LET REAGENT AUTO MICROSCOP Y US BREAST 35027 MIRANDA MIRANDA UNI REAL 6 [facility] TIME INC INC WITH IMAGE COMPLETE US BREAST 33818 [place] [facility] ALL UNI REAL 6 MEDICAL TIME IMAGING WITH ASS IMAGE LIMITED DIAGNOSTI G0206 [place] AW[facility] ALL C 6 MEDICAL MAMMOGRAP IMAGING HY INCL ASS CAD WHEN PERF; UNI COMPUTER- 31722 MIRANDA JEAN AIDED 6 [facility] DETECTION INC INC SCREENING MAMMOGRAP HY SCREENING G0202 MIRANDA JEAN 6 [facility] MAMMOGRAP INC INC HY MARINA INCL CAD WHEN PERFORMD CV STRS 06164 MIRANDA ZHANG TST 6 [facility] RX CONT P ECG I&R ONLY CV STRS 36368 MIRANDA JEAN TST 6 [facility] XERS&/OR INC INC RX CONT ECG TRCG ONLY CV STRS 90790 MIRANDA ZHANG TST 6 [facility] RX CONT P ECG W/O I&R THROMBOPL 59884 MIRANDA JEAN ASTIN 6 [facility] TIME INC INC PARTIAL PLASMA/WH OLE BLOOD ECG 81120 MIRANDA HYATT JR ROUTINE [address] [facility] W/LEAST P 12 LDS I&[place] [address] [place] DANIEL HEAD/BRAI 6 MEDICAL JAMIN N W/O IMAGING CONTRAST ASS MATERIAL PROTHROMB 75180 MIRANDA JEAN IN TIME 6 [facility] INC INC CREATINE 69769 MIRANDA JEAN KINASE 6 [facility] TOTAL INC INC ECG 23377 MIRANDA JEAN ROUTINE 6 [facility] ECG INC INC W/LEAST 12 LDS TRCG ONLY W/O I&[place] [address] MIRANDA MIRANDA TROPONIN 6 [facility] QUANTITAT INC INC ANNA BLOOD 23665 MIRANDA EATONON COUNT 6 [facility] COMPLETE INC INC AUTO&AUTO DIFRNTL WBC COMPREHEN 19016 MIRANDATERA JEAN SIVE 6 [facility] METABOLIC INC INC PANEL CREATINE 61460 MIRANDA JEAN KINASE MB 6 [facility] FRACTION INC INC ONLY SBSQ 03379 [facility] 6 MEDICAL CARE/DAY SERV 25 FOUNDATIO MINUTES N ECHO 16761 [place] [facility] 6 MEDICAL 2D SERV W/WOM-MOD FOUNDATIO E COMPL N SPEC&COLR D ECG 71863 [facility] ROUTINE 6 MEDICAL ECG SERV W/LEAST FOUNDATIO 12 LDS N I&R ONLY RADIOLOGI 68136 MIRANDA JEAN C 6 [facility] EXAMINATI INC INC ON CHEST [place] FRONTAL CRITICAL 40565 [facility] 6 PHYSICIAN MAT ILL/INJUR S, PLLC ED PATIENT INIT 30-74 MIN AMB A0427 [facility] SERVICE 6 AMBULANCE AMBULANCE ALS SERVICE SERVICE EMERGENCY TRANSPORT LEVEL 1 INITIAL 70147 [facility] 6 MEDICAL CARE/DAY SERV 30 FOUNDATIO MINUTES N THER 10165 MIRANDA JEAN PROPH/DX 6 [facility] NJX IV INC INC PUSH SINGLE/1S T SBST/[place] [address] MIRANDA JEAN HEAD/BRAI 6 [facility] N W/O INC INC CONTRAST MATERIAL ECG 09387 MIRANDA JEAN ROUTINE 6 [facility] ECG INC INC W/LEAST 12 LDS TRCG ONLY W/O I&R GROUND A0425 [facility] PER SERVICE SERVICE [facility] 15781 [facility] DISCHARGE 6 PHYSICIAN SHORTY DAY S GROUP MANAGEMEN T 30 MIN/< RIGHT 96395 [facility] 6 PHYSICIAN MAT CATH O2 S GROUP SATURATIO N & CARDIAC OUTPUT ECHO 42481 [facility] 6 MEDICAL 2D SERV W/WOM-MOD FOUNDATIO E COMPL N SPEC&COLR D DUP-SCAN 12609 [facility] X[facility] VEINS 6 MEDICAL JAMIN COMPLETE IMAGING ASS BILATERAL STUDY PULMONARY 20847 [place] DANIEL 6 MEDICAL JAMIN VENTILATI IMAGING ON & ASS PERFUSION IMAGING INITIAL 25986 [facility] 6 PH[facility]ICIAN [facility] CARE/DAY S GROUP 70 MINUTES SBSQ [address] 15 MINUTES INITIAL [address] 50 MINUTES ECG 32789 MIRANDA HYATT ROUTINE [address] [place] [address] W/LEAST P 12 LDS I&R ONLY ECG 40149 MIRANDA LEWIS ROUTINE [address] [place] [address] W/LEAST P 12 LDS I&R ONLY RADIOLOGI 87348 [place] AW[facility] ALL C EXAM 6 MEDICAL CHEST 2 IMAGING VIEWS ASS FRONTAL&L ATERAL Encounters Encounter Start End Date Code Location Performer Type Date HOSPITAL MIRANDA Munoz 7 [facility] OUTPATIEN INC T OFFICE 55826 [facility] 7 7 PHYSICIAN T VISIT S GROUP 15 MINUTES HOSPITAL MIRANDA Munoz 7 [facility] OUTPATIEN INC T EMERGENCY 09262 [facility] MCKEON DEPT 7 7 PHYSICIAN VISIT S, PLLC HIGH SEVERITY& THREAT FUNJ EMERGENCY 22690 MIRANDA 7 7 [facility] DEPARTMEN INC T VISIT MODERATE SEVERITY HOSPITAL MIRANDA Munoz 7 [facility] OUTPATIEN INC T OFFICE 84701 [facility] 7 PHYSICIAN T VISIT S GROUP 25 MINUTES HOSPITAL MIRANDA - 7 7 [facility] OUTPATIEN INC T OFFICE 75716 [facility] JOSS JR OUTPATIEN 6 6 PHYSICIAN RUDY T VISIT S GROUP 10 MINUTES HOSPITAL MIRANDA - 6 6 [facility] OUTPATIEN INC T INITIAL 53025 [facility] GAN PREVENTIV 6 6 PHYSICIAN VAZQUEZ E S GROUP MEDICINE NEW PATIENT 40-64YRS [facility] MIRANDA - 6 6 [facility] OUTPATIEN INC T OFFICE 90034 [facility] FRYMAN OUTPATIEN 6 6 PHYSICIAN EUG T VISIT S GROUP 15 MINUTES HOSPITAL MIRANDA - 6 6 [facility] OUTPATIEN INC T EMERGENCY 59099 MIRANDA 6 6 [facility] DEPARTMEN INC T VISIT MODERATE SEVERITY EMERGENCY 35686 [facility] FOX 6 6 PHYSICIAN U LETI DEPARTMEN S, [facility] T VISIT HIGH/URGE NT SEVERITY HOSPITAL MIRANDA - 6 6 [facility] OUTPATIEN INC T OFFICE 16126 [facility] AIDE OUTPATIEN 6 6 PHYSICIAN SHORTY T VISIT S GROUP 15 MINUTES HOSPITAL MIRANDA - 6 6 [facility] OUTPATIEN INC T OFFICE 10159 [facility] FRYMAN OUTPATIEN 6 6 PHYSICIAN EUG T VISIT S GROUP 15 MINUTES HOSPITAL MIRANDA - 6 6 [facility] OUTPATIEN INC T OFFICE 61352 [facility] AIDE OUTPATIEN 6 6 PHYSICIAN SHORTY T VISIT S GROUP 10 MINUTES OFFICE 06199 LEONEL QUIROGA OUTPATIEN 6 6 MEDICAL T VISIT SERV 25 FOUNDATIO MINUTES [facility] MIRANDA - 6 6 [facility] OUTPATIEN INC T OFFICE 51494 [facility] AIDE OUTPATIEN 6 6 PHYSICIAN SHORTY T VISIT S GROUP 15 MINUTES EMERGENCY 95561 [facility] NOBLE DEPT 6 6 PHYSICIAN SHORTY VISIT S, PLLC HIGH SEVERITY& [facility]AT [facility] OUTPATIEN E T HOSPITALS EMERGENCY 35795 LEONEL NORMAN 6 6 MEDICAL [place] DEPARTMEN SERV T VISIT FOUNDATIO MODERATE N SEVERITY EMERGENCY 70341 6 6 [facility] DEPARTMEN E T VISIT HOSPITALS HIGH/URGE NT SEVERITY EMERGENCY 51071 LEONEL ESCALANTE DEPT 6 6 MEDICAL CAMERON VISIT SERV HIGH FOUNDATIO SEVERITY& N THREAT [facility] - 6 6 INPATIENT HOSPITAL EMERGENCY 07838 MIRANDA 6 6 [facility] DEPARTMEN INC T VISIT HIGH/URGE NT SEVERITY EMERGENCY 97723 DIALLO [address]UEL [facility] DEPT 6 6 PHYSICIAN VISIT S, PLLC HIGH SEVERITY& THREAT FUNCJ EMERGENCY 80405 [facility] NOYOLA 6 6 PHYSICIAN FOR DEPARTMEN S, PLLC T VISIT HIGH/URGE NT SEVERITY
--- OUTSIDE RECORDS SUMMARY | 2017-08-15 05:15 | External Medical Summary Rpt ---
Author Author , NAYA Organization NAYA Address Unknown Phone [email or web address] Care Team Providers Care Taxonomy Teacher Name Role Phone ESCALANTE CAMERON, ESCALANTE Unavailable Unavailable CAMERON ALLRAN JR RUDY, ALLRAN Unavailable Unavailable JR RUDY BEINEKE, BEINEKE Unavailable Unavailable BESSON, BESSON Unavailable Unavailable BESSON RAMBO, BESSON Unavailable Unavailable RAMBO AWAD, AWAD Unavailable Unavailable AWAD ALL, AWAD ALL Unavailable Unavailable [facility] Unavailable Unavailable SERVICE, [facility] SERVICE GAN VAZQUEZ, GAN Unavailable Unavailable [facility] Unavailable Unavailable [facility] DANIEL JAMIN, Unavailable Unavailable DANIEL JAMIN JACKSON MAT, JACKSON Unavailable Unavailable MAT FRYMAN, FRYMAN Unavailable Unavailable FRYMAN EUG, FRYMAN Unavailable Unavailable EUG AIDE SHORTY, AIDE Unavailable Unavailable SHORTY [facility] Un[facility] Un[facility], MIRANDA [facility] Unavailable Unavailable HOSPITAL P, [facility], Unavailable Unavailable [facility] MCKEON, MCKEON Unavailable Unavailable EMERSON LEXII, Unavailable Unavailable EMERSON LEXII [facility] Unavailable Unavailable IMAGING [facility], [facility] RAY CHI, RAY CH[facility] [...] Unavailable Unavailable [facility] Unavailable Unavailable H[facility]PITALS, [facility] WALKER FOR, WALKER Unavailable Unavailable FOR Purpose Continuity of Care Document - 01-28-2016 through 2016 Problems Code Diagnosis DOS Provider Status R928 OTH ABNORM 06-14-2017 [facility] INCONCLUSIV INC E FIND ON DX IMAG BREAST Z1231 ENCOUNTER 06-14-2017 [place] [facility]MO MALIG IMAGING ASS NEOPLASM BREAST I10 ESSENTIAL 06-06-2017 [facility] PRIMARY PHYSICIANS HYPERTENSIO GROUP N G459 TRANSIENT 04-26-2017 [facility] CEREBRAL PHYSICIANS, ISCHEMIC PLLC ATTACK UNSPECIFIED R062 WHEEZING 04-26-2017 [facility] R200 ANESTHESIA 04-26-2017 [facility] SKIN MEDICAL IMAGING ASS R202 PARESTHESIA 04-26-2017 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 K5730 DIVERTICULO 09-12-2016 [facility] SIS LG PHYSICIANS INTEST W/O GROUP PERF/ABSC W/O BLEED R1030 LOWER 09-12-2016 [facility] ABDOMINAL PHYSICIANS PAIN GROUP UNSPECIFIED Z1211 ENCOUNTER 09-12-2016 [facility] SCREEN[facility] ANESTH OF MALIGNANT THE BLUE NEOPLASM OF COLON M01930 ENCOUNTER 08-29-2016 [facility], LABEL 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 EXAM LLC GENERAL RTN W/O ABNORMAL FIND R748 ABNORMAL 08-28-2016 [facility] LEVELS OF PHYSICIANS OTHER SERUM [...] CALCULUS PHYSICIANS, UNSPECIFIED PLLC N3001 ACUTE 08-07-2016 [facility] WITH INC HEMATURIA N390 URINARY 08-07-2016 [facility] TRACT PHYSICIANS, INFECTION PLLC SITE NOT SPECIFIED R1031 RIGHT LOWER 08-07-2016 [facility] Z8673 PERSONAL HX 03-13-2016 [facility] CEREB [facility] INFARCT NO RESID DEFICIT R079 CHEST PAIN 02-25-2016 [facility] P R209 UNSPECIFIED 2016 [facility] S OF SKIN SENSATION I378 OTHER 02-03-2016 [facility] 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 G8191 HEMIPLEGIA 02-02-2016 [facility] UNS SERV AFFECTING [facility]OUNDATION RIGHT DOMINANT SIDE 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, UNS PLLC OCCL/STEN UNS CEREB ART S66046 CEREBRAL 02-02-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 UNS SERV OCCL/STEN FOUNDATION LT CEREBELLAR ART R0789 OTHER CHEST 02-02-2016 [facility] PA[facility] SERV [facility] R0989 OTH SPEC SX 02-01-2016 [facility] & SIGNS PHYSICIANS INVLV THE GROUP CIRC & RESP SYS I2510 [facility] [place] 01-31-2016 [facility]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 I2699 OTH 01-31-2016 [facility] PULMONARY PHYSICIANS EMBOLISM GROUP W/O ACUTE COR PULMONALE I361 NONRHEUMATI 01-31-2016 [facility] C TRICUSPID SERV VALVE FOUNDATION INSUFFICIEN CY I371 NONRHEUMATI 01-31-2016 [facility] PULMONARY SERV VALVE FOUNDATION INSUFFICIEN CY R0600 DYSPNEA 01-31-2016 [place] UNSPECIFIED [facility]ICAL IMAGING ASS R65117 PERSONAL 01-31-2016 [place] HISTORY OF MEDICAL PULMONARY IMAGING ASS EMBOLISM Z96672 PAIN IN 01-28-2016 [place] RIGHT MEDICAL SHOULDER IMAGING ASS U69839 PAIN IN 01-28-2016 [facility] RIGHT ARM PHYSICIANS, [facility] S88166G ADVERSE 01-28-2016 [facility] P NTS INITIAL ENCOUNTER Medications Na ND [...] DOS Code Location Performer Comment SCREENING G0202 [facility] 7 MEDICAL MAMMOGRAP IMAGING HY MARINA ASS INCL CAD WHEN PERFORMD SCREENING 50447 [facility]DA JEAN 7 [facility] MAMMOGRAP INC INC HY BI 2-VIEW BREAST INC CAD ECG 20637 MIRANDA MIRANDA ROUTINE 7 [facility] ECG INC INC W/LEAST 12 LDS TRCG ONLY W/O I&R DUPLEX 56364 MIRANDA MIRANDA SCAN 7 [facility] EXTRACRAN INC [place] [address] MIRANDA JEAN HEAD/BRAI 7 [facility] N W/O INC INC CONTRAST MATERIAL RADIOLOGI 70338 MIRANDATERA JEAN C EXAM 7 [facility] CHEST 2 INC INC VIEWS FRONTAL&L ATERAL CREATINE 63210 MIRANDA MIRANDA KINASE MB 7 [facility] [place] [address] MIRANDA MIRANDA CERVICAL 7 [facility] SPINE W/O INC INC CONTRAST MATERIAL CREATINE 06696 MIRANDATERA JEAN KINASE 7 [facility] TOTAL INC INC COMPREHEN 56538 MIRANDA JEAN SIVE 7 [facility] [address] MIRANDA MIRANDA TROPONIN 7 [facility] QUANTITAT INC INC ANNA BLOOD 12299 MIRANDA MIRANDA COUNT 7 [facility] COMPLETE INC INC AUTO&AUTO DIFRNTL WBC URNLS DIP 56701 M[facility]DA MIRANDA 7 [facility] STICK/TAB INC INC LET REAGENT AUTO MICROSCOP Y ECG 35656 MIRANDA ZHANG ROUTINE 7 [facility] W/LEAST P 12 LDS I&R ONLY LIPID 69842 MIRANDA JEAN PANEL 7 [place] [address] MIRANDA MIRANDA FREE 7 [facility] THYROXINE INC INC GENERAL 25927 MIRANDA JEAN HEALTH 7 [facility] PANEL INC INC DIAGNOSTI G0206 [place] [facility] 7 MEDICAL MAMMOGRAP IMAGING HY INCL ASS CAD WHEN PERF; UNI US BREAST 08642 MIRANDA JEAN UNI REAL 7 [facility] TIME INC INC WITH IMAGE COMPLETE US BREAST 93992 [place] [facility] UNI REAL 7 MEDICAL TIME IMAGING WITH ASS IMAGE LIMITED DIAGNOSTI 13439 [facility] 7 MEDICAL MAMMOGRAP IMAGING HY ASS COMPUTER- [place] [address] [facility], GILLIS SURG 6 LLC PSYCHIATRIC PATHOLOGY GROSS&SHORTY ROSCOPIC EXAM COLONOSCO 30751 M[facility]DA JEAN PY 6 [facility] W/BIOPSY INC INC SINGLE/MU LTIPLE COLSC FLX 28762 [facility] ALLRAN JR W/RMVL 6 PHYSICIAN RUDY OF TUMOR S GROUP POLYP LESION SNARE TQ ANES 71805 [facility] 6 ANESTH [place] [facility] [place] [address] MIRANDA JEAN INFUSION 6 [facility] THERAPY/P INC INC ROPHYLAXI S /DX 1ST TO 1 [place] [address] MIRANDA JEAN INFUSION 6 [facility] THERAPY INC INC PROPHYLAX IS/DX EA HOUR CYTP C/V 68562 [facility], PICKLESIM AUTO THIN 6 [facility] ER JR PATRICK LYR PREPJ SCR MNL RESCR PHYS LIPID 55071 MIRANDA JEAN PANEL 6 [place] [address] MIRANDA JEAN ABDOMINAL 6 [facility] REAL INC INC TIME W/IMAGE LIMITED HEPATIC 77279 M[facility]ANDA JEAN FUNCTION 6 [facility] PANEL INC INC COLLECTIO 46211 MIRANDA JEAN N VENOUS 6 [facility] BLOOD INC INC VENIPUNCT URE HEPATITIS 25679 M[facility]DA JEAN A 6 [facility] ANTIBODY INC INC HAAB HEPATITIS 56841 M[facility]ANDA JEAN C 6 [facility] ANTIBODY INC INC PROTHROMB 42501 MIRANDA JEAN IN TIME 6 [facility] INC INC HEPATITIS 14879 MIRANDA JEAN B CORE 6 [facility] ANTIBODY INC INC HBCAB TOTAL HEPATITIS 41990 MIRANDA JEAN B SURF 6 [facility] [address] MIRANDA JEAN HEPATITIS 6 [facility] B INC INC SURFACE ANTIGEN COMPREHEN 15659 MIRANDA JEAN SIVE 6 [facility] [place] [address] MIRANDA JEAN ABDOMEN & 6 [facility] PELVIS INC INC W/[place] [address] MIRANDA JEAN LIPASE 6 [facility] INC INC BLOOD 10360 MIRANDA JEAN COUNT 6 [facility] COMPLETE INC INC AUTO&[place] [address] MIRANDA MIRANDA AMYLASE 6 [facility] INC INC COLLECTIO 37205 MIRANDA JEAN N VENOUS 6 [facility] BLOOD INC INC VENIPUNCT URE URNLS DIP 80084 MIRANDA JEAN 6 [facility] STICK/TAB INC INC LET REAGENT AUTO MICROSCOP Y US BREAST 10011 MIRANDA MIRANDA UNI REAL 6 [facility] TIME INC INC WITH IMAGE COMPLETE US BREAST 17968 [place] [facility] ALL UNI REAL 6 MEDICAL TIME IMAGING WITH ASS IMAGE LIMITED DIAGNOSTI G0206 [place] [facility] ALL C 6 MEDICAL MAMMOGRAP IMAGING HY INCL ASS CAD WHEN PERF; UNI COMPUTER- 60421 MIRANDA JEAN AIDED 6 [facility] DETECTION INC INC SCREENING MAMMOGRAP HY SCREENING G0202 MIRANDA JEAN 6 [facility] MAMMOGRAP INC INC HY MARINA INCL CAD WHEN PERFORMD CV STRS 94345 MIRANDA ZHANG TST 6 [facility]/OR [facility] RX CONT P ECG I&R ONLY CV STRS 04970 MIRANDA JEAN TST 6 [facility] XERS&/OR INC INC RX CONT ECG TRCG ONLY CV STRS 14022 MIRANDA ZHANG TST 6 [facility]/OR [facility] RX CONT P ECG W/O I&R THROMBOPL 32779 MIRANDA JEAN ASTIN 6 [facility] TIME INC INC PARTIAL PLASMA/WH OLE BLOOD ECG 15307 MIRANDA HYATT JR ROUTINE 6 [facility] W/LEAST P 12 LDS I&[place] [address] [place] DANIEL HEAD/BRAI 6 MEDICAL JAMIN N W/O IMAGING CONTRAST ASS MATERIAL PROTHROMB 46119 MIRANDA JEAN IN TIME 6 [facility] INC INC CREATINE 64848 MIRANDA JEAN KINASE 6 [facility] TOTAL INC INC ECG 02768 MIRANDA JEAN ROUTINE 6 [facility] ECG INC INC W/LEAST 12 LDS TRCG ONLY W/O I&[place] [address] MIRANDA MIRANDA TROPONIN 6 [facility] QUANTITAT INC INC ANNA BLOOD 85096 MIRANDA EATONON COUNT 6 [facility] COMPLETE INC INC AUTO&AUTO DIFRNTL WBC COMPREHEN 04577 MIRANDATERA JEAN SIVE 6 [facility] METABOLIC INC INC PANEL CREATINE 28074 MIRANDA JEAN KINASE MB 6 [facility] FRACTION INC INC ONLY SBSQ 63371 [facility] 6 MEDICAL CARE/DAY SERV 25 FOUNDATIO MINUTES N ECHO 93616 [facility] 6 MEDICAL 2D SERV W/WOM-MOD FOUNDATIO E COMPL N SPEC&COLR D ECG 61145 [facility] ROUTINE 6 MEDICAL ECG SERV W/LEAST FOUNDATIO 12 LDS N I&R ONLY RADIOLOGI 83210 MIRANDA JEAN C 6 [facility] EXAMINATI INC INC ON CHEST SINGLE VIEW FRONTAL CRITICAL [address] [facility] 6 PHYSICIAN MAT ILL/INJUR S, PLLC ED PATIENT INIT 30-74 MIN AMB A0427 [facility] 6 AMBULANCE AMBULANCE ALS SERVICE SERVICE EMERGENCY TRANSPORT LEVEL 1 INITIAL 45680 [facility] 6 MEDICAL CARE/DAY SERV 30 FOUNDATIO MINUTES N THER 17885 MIRANDA JEAN PROPH/DX 6 [facility] NJX IV INC INC PUSH SINGLE/1S T SBST/[place] [address] MIRANDA JEAN HEAD/BRAI 6 [facility] N W/O INC INC CONTRAST MATERIAL ECG 24726 MIRANDA JEAN ROUTINE 6 [facility] ECG INC INC W/LEAST 12 LDS TRCG ONLY W/O I&R GROUND A0425 [facility] AMBULANCE PER SERVICE SERVICE STATUTE [facility] 80525 [facility] DISCHARGE 6 PHYSICIAN SHORTY DAY S GROUP MANAGEMEN T 30 MIN/< RIGHT 38903 [facility] 6 PHYSICIAN MAT CATH O2 S GROUP SATURATIO N & CARDIAC OUTPUT ECHO 02032 [facility] 6 MEDICAL 2D SERV W/WOM-MOD FOUNDATIO E COMPL N SPEC&COLR D DUP-SCAN 61192 [facility] X[facility] 6 MEDICAL JAMIN COMPLETE IMAGING ASS BILATERAL STUDY PULMONARY 28476 [place] DANIEL 6 MEDICAL JAMIN VENTILATI IMAGING ON & ASS PERFUSION IMAGING INITIAL 42708 [facility] 6 PHYSICIAN [facility] CARE/DAY S GROUP 70 MINUTES SBSQ [address] 15 MINUTES INITIAL [address] 50 MINUTES ECG 13242 MIRANDA HYATT ROUTINE [address] [place] [address] W/LEAST P 12 LDS I&R ONLY ECG 72299 MIRANDA LEWIS ROUTINE [address] [place] [address] W/LEAST P 12 LDS I&R ONLY RADIOLOGI 12994 [place] [facility] ALL C EXAM 6 MEDICAL CHEST 2 IMAGING VIEWS ASS FRONTAL&L ATERAL Encounters Encounter Start End Date Code Location Performer Type Date HOSPITAL MIRANDA Munoz 7 [facility] OUTPATIEN INC T OFFICE 89655 [facility] 7 7 PHYSICIAN T VISIT S GROUP 15 MINUTES HOSPITAL MIRANDA Munoz 7 [facility] OUTPATIEN INC T EMERGENCY 13299 DI[facility] MCKEON DEPT 7 7 PHYSICIAN VISIT S, PLLC HIGH SEVERITY& THREAT FUNJ EMERGENCY 58175 MIRANDA 7 7 [facility] DEPARTMEN INC T VISIT MODERATE SEVERITY HOSPITAL MIRANDA Munoz 7 [facility] OUTPATIEN INC T OFFICE 15598 [facility] 7 7 PHYSICIAN T VISIT S GROUP 25 MINUTES HOSPITAL MIRANDA - 7 7 [facility] OUTPATIEN INC T OFFICE 13008 [facility] JOSS JR OUTPATIEN 6 6 PHYSICIAN RUDY T VISIT S GROUP 10 MINUTES HOSPITAL MIRANDA - 6 6 [facility] OUTPATIEN INC T INITIAL 42623 [facility] AGN PREVENTIV 6 6 PHYSICIAN VAZQUEZ E S GROUP MEDICINE NEW PATIENT 40-64YRS [facility] MIRANDA - 6 6 [facility] OUTPATIEN INC T OFFICE 05171 [facility] FRYMAN OUTPATIEN 6 6 PHYSICIAN EUG T VISIT S GROUP 15 MINUTES HOSPITAL MIRANDA - 6 6 [facility] OUTPATIEN INC T EMERGENCY 13817 MIRANDA 6 6 [facility] DEPARTMEN INC T VISIT MODERATE SEVERITY EMERGENCY 33977 DIALLO FOX 6 6 PHYSICIAN U LETI DEPARTMEN S, [facility] T VISIT HIGH/URGE NT SEVERITY HOSPITAL MIRANDA - 6 6 [facility] OUTPATIEN INC T OFFICE 79826 [facility] AIDE OUTPATIEN 6 6 PHYSICIAN SHORTY T VISIT S GROUP 15 MINUTES HOSPITAL MIRANDA - 6 6 [facility] OUTPATIEN INC T OFFICE 12769 [facility] FRYMAN OUTPATIEN 6 6 PHYSICIAN EUG T VISIT S GROUP 15 MINUTES HOSPITAL MIRANDA - 6 6 [facility] OUTPATIEN INC T OFFICE 17728 [facility] AIDE OUTPATIEN 6 6 PHYSICIAN SHORTY T VISIT S GROUP 10 MINUTES OFFICE 60831 LEONEL QUIROGA OUTPATIEN 6 6 MEDICAL T VISIT SERV 25 FOUNDATIO MINUTES [facility] MIRANDA - 6 6 [facility] OUTPATIEN INC T OFFICE 15936 [facility] AIDE OUTPATIEN 6 6 PHYSICIAN SHORTY T VISIT S GROUP 15 MINUTES EMERGENCY 14944 DIALLO NOBLE DEPT 6 6 PHYSICIAN SHORTY VISIT S, PLLC HIGH SEVERITY& THREAT [facility] - 6 6 [facility]ALTH[facility] OUTPATIEN E T HOSPITALS EMERGENCY 65215 LEONEL NOR[place] 6 6 MEDICAL LEXII DEPARTMEN SERV T VISIT FOUNDATIO MODERATE N SEVERITY EMERGENCY 37063 6 6 [facility]ALTH[facility] DEPARTMEN E T VISIT HOSPITALS HIGH/URGE NT SEVERITY EMERGENCY 98422 LEONEL ESCALANTE DEPT 6 6 MEDICAL CAMERON VISIT SERV HIGH FOUNDATIO SEVERITY& N THREAT [facility] - 6 6 INPATIENT HOSPITAL EMERGENCY 13829 MIRANDA 6 6 [facility] DEPARTMEN INC T VISIT HIGH/URGE NT SEVERITY EMERGENCY 18374 DIALLO [facility]MAN[facility]EL [facility] DEPT 6 6 PHYSICIAN VISIT S, PLLC HIGH SEVERITY& THREAT FUNCJ EMERGENCY 05543 DIALLO NOYOLA 6 6 PHYSICIAN FOR DEPARTMEN S, PLLC T VISIT HIGH/URGE NT SEVERITY
--- OUTSIDE RECORDS SUMMARY | 2017-08-15 05:16 | External Medical Summary Rpt ---
Demographics Preferred Language Danish Marital Status Unknown Sabianist Affiliation Unknown Race Unknown Ethnic Group Unknown Author Author NAYA Address Unknown Phone Immunization No patient found.
--- OUTSIDE RECORDS SUMMARY | 2017-08-15 05:16 | External Medical Summary Rpt ---
Demographics Preferred Language Setswana Marital Status Unknown Rastafarian Affiliation Unknown Race Unknown Ethnic Group Unknown Author Author NAYA Address Unknown Phone Immunization No patient found.
== END 2017-07-24 14:27 | disposition home or self-care (01) ==
LOC: ER 13:31 → 2ND 15:05
PROVIDERS: Emergency Medicine; Internal Medicine
PROC: B2111ZZ Fluoroscopy of Multiple Coronary Arteries using Low Osmolar Contrast (ICD-10-PCS; 2017-07-24)
PROC: B2151ZZ Fluoroscopy of Left Heart using Low Osmolar Contrast (ICD-10-PCS; 2017-07-24)
PROC: 4A023N7 Measurement of Cardiac Sampling and Pressure, Left Heart, Percutaneous Approach (ICD-10-PCS; principal; 2017-07-24 08:30)
DX: R07.9 Chest pain, unspecified (principal); Z72.0 Tobacco use; I10 Essential (primary) hypertension; Z86.73 Personal history of transient ischemic attack (TIA), and cerebral infarction without residual deficits
CPT/HCPCS: C1725; C1760; C1769; G0378; J1644; J2405; Q9967

== ENCOUNTER → 2017-08-10 | Outpatient (CLI) | payer MEDICAID ==
--- NOTE | 2017-08-11 10:19 | RADIOLOGY REPORT PS360 ---
UGI ESOPHAGUS W/AIR COMPARISON: None HISTORY: Some difficulty swallowing, abdominal pain TECHNIQUE: Evaluation of the esophagus and stomach after drinking barium under fluoroscopy FINDINGS: The swallowing function and esophageal motility appear normal. There is minimal cricopharyngeal dysfunction at the C5-6 M level cervical spine. There is a eowkh-eo-zufspvhy sized hiatal hernia, there is minimal intermittent GE reflux with the patient in supine position. Stomach is well-distended with barium and air and shows no intrinsic abnormality. The duodenal bulb and duodenal sweep are radiographically normal. IMPRESSION: 1. Mild cricopharyngeal dysfunction as noted. 2. Moderate sized hiatal hernia with minimal intermittent reflux 3. Otherwise negative upper GI series
--- NOTE | 2017-08-11 10:19 | RADIOLOGY REPORT PS360 ---
UGI ESOPHAGUS W/AIR COMPARISON: None HISTORY: Some difficulty swallowing, abdominal pain TECHNIQUE: Evaluation of the esophagus and stomach after drinking barium under fluoroscopy FINDINGS: The swallowing function and esophageal motility appear normal. There is minimal cricopharyngeal dysfunction at the C5-6 M level cervical spine. There is a dkvmm-nb-ehafwtob sized hiatal hernia, there is minimal intermittent GE reflux with the patient in supine position. Stomach is well-distended with barium and air and shows no intrinsic abnormality. The duodenal bulb and duodenal sweep are radiographically normal. IMPRESSION: 1. Mild cricopharyngeal dysfunction as noted. 2. Moderate sized hiatal hernia with minimal intermittent reflux 3. Otherwise negative upper GI series
== END ==
LOC: RAD 09:46
DX: R13.10 Dysphagia, unspecified (principal)